=== PATIENT | male | born 1950 | race Caucasian/White ===

== ENCOUNTER 2016-12-14 17:23 | Inpatient (IN) | payer MEDICARE, MEDICAID ==
[~2016-12-14] VITALS: Ht 188 cm; Wt 165.0 kg
[~2016-12-14 17:23] MED LIST: ADVAIR DISK1 INH; AMLODIPINE BESYL5 MG PO; ASPIRIN EC325 MG PO; ASPIRIN ENTERIC81 MG PO; ATIVAN1 MG PO; BACTRIM DS1 TAB PO; BACTROBAN2 % EX; BUSPAR15 M1 PO; CEFTIN500 MG PO; CEPHALEXIN500 MG PO; CIPROFLOXACN500 MG PO; COMBIVENT RESPIMAT IN; COUMADIN2.5 MG PO; COUMADIN4 MG PO; COUMADIN5 MG PO; DESMOPRESSIN0.2 MG PO; DEXILANT60 MG PO; DUONEB IN; FENOFIBRATE145 MG PO; FENOFIBRATE54 MG PO; FLUOXETINE20 MG PO; GABAPENTIN300 MG PO; GLIPIZIDE ER5 MG PO; HYDROXYZ HCL25 MG PO; HYDROXYZINE HCL25 M1 PO; KEPPRA500 M2 PO; LISINOPRIL20 MG PO; LOPRESSOR50 M1 PO; LORAZEPAM0.5 MG PO; LYRICA50 MG PO; MEDDOSEPAK PO; METFORMIN850 MG PO; METOPROL TAR25 MG PO; NABUMETONE500 MG PO; OXYCODONE HCL15 MG PO; PREDNISONE20 MG PO; SIMVASTATIN40 MG PO; SUMATRIPTAN25 MG PO; TYLENOL 500MG TAB PO; ZESTRIL30 MG PO; ZOHYDRO ER30 M1 PO
[2016-12-14 18:08] LABS: HEMATOCRIT 38.4 % (39.0-50.0); HEMOGLOBIN 11.3 g/dl (14.0-18.0); IMMATURE GRANULOCYTES 0.3 % (0.0-1.0); MEAN CORPUSCULAR HGB 23.5 pG CALC (26.0-32.0); MEAN CORPUSCULAR HGB CONC 29.4 g/L CALC (32.0-36.0); NEUT# 8.35 thou/uL (1.82-7.42); RED BLOOD COUNT 4.8 mill/uL (4.70-6.10); RED CELL DISTRI WIDTH 17.8 % (11.5-15.5)
[2016-12-14 18:20] LABS: ALBUMIN 4.1 g/dL (3.2-5.0); ALKALINE PHOSPHATASE 88 u/l (38-126); ANION GAP 17 (6-22 (CALC)); BILIRUBIN, TOTAL 0.8 mg/dL (0.0-1.4); BUN 30 mg/dL (8-23); BUN/CREATININE RATIO 10 (12-20 (CALC)); CALCIUM 9.3 mg/dL (8.4-10.2); CARBON DIOXIDE 30 mmol/l (22-30); CHLORIDE 98 mmol/l (95-108); CREATININE 2.9 mg/dL (0.7-1.3); GFR 22 ML/MIN (>=60 (CALC)); GFR FOR AFR.AMER. 27 ML/MIN (>=60 (CALC)); GLUCOSE 127 mg/dL (82-115); SGOT/AST 47 u/l (19-48); SGPT/ALT < 6 u/l (11-66); SODIUM 140 mmol/l (137-146); TOTAL PROTEIN 8.5 g/dL (6.3-8.2)
[2016-12-14 18:33] LABS: MYOGLOBIN 67 ng/mL (0 - 121)
[2016-12-14 18:52] LABS: INTERNATIONAL NORMALIZED RATIO 3.3 RATIO (0.7-1.3); PROTHROMBIN TIME 39.4 SECONDS (9.0-12.5)
[2016-12-14 20:59] LABS: URINE BILIRUBIN - DIPSTICK NEGATIVE (NEGATIVE); URINE BLOOD DIPSTICK TRACE-INTACT (NEGATIVE); URINE CLARITY CLOUDY; URINE COLOR AMBER; URINE GLUCOSE - DIPSTICK NEGATIVE (NEGATIVE); URINE KETONE NEGATIVE (NEGATIVE); URINE LEUK ESTERASE TRACE (NEGATIVE); URINE NITRITE - DIPSTICK NEGATIVE (Negative); URINE PROTEIN - DIPSTICK 100 mg/dL (NEG-TRACE); URINE SPECIFIC GRAVITY >=1.030; URINE UROBILINOGEN - DIPSTICK 0.2 E.U./dL (0.2)
[2016-12-14 21:01] LABS: COCAINE NEGATIVE (NEGATIVE); METHADONE NEGATIVE (NEGATIVE); TETRAHYDROCANNABIONOL NEGATIVE (NEGATIVE)
[2016-12-14 21:02] LABS: BARBITURATES NEGATIVE (NEGATIVE); OXCYCODONE POSITIVE (NEGATIVE); TRICYLIC ANTIDEPRESSANTS NEGATIVE (NEGATIVE)
[2016-12-14 21:05] LABS: URINE AMORPH SEDIMENT MANY hpf (NONE-FER)
[2016-12-14 22:47] VITALS: BP 111/69
[2016-12-15 04:32] VITALS: BP 104/55
[2016-12-15 05:49] LABS: HEMATOCRIT 37.9 % (39.0-50.0); HEMOGLOBIN 11.1 g/dl (14.0-18.0); IMMATURE GRANULOCYTES 0.4 % (0.0-1.0); MEAN CORPUSCULAR HGB 23.4 pG CALC (26.0-32.0); MEAN CORPUSCULAR HGB CONC 29.3 g/L CALC (32.0-36.0); NEUT# 8.03 thou/uL (1.82-7.42); RED BLOOD COUNT 4.74 mill/uL (4.70-6.10); RED CELL DISTRI WIDTH 17.7 % (11.5-15.5)
[2016-12-15 06:05] LABS: INTERNATIONAL NORMALIZED RATIO 3.1 RATIO (0.7-1.3); PROTHROMBIN TIME 36.9 SECONDS (9.0-12.5)
[2016-12-15 07:16] LABS: CREATININE 3.3 mg/dL (0.7-1.3); POTASSIUM 4.3 mmol/l (3.5-5.1)
[2016-12-15 08:05] VITALS: BP 106/63
[2016-12-15] MEDS ORDERED: POTASSIUM CHLO20 ME2 PO (11:43)
[2016-12-15] MEDS ORDERED: LASIX 40 MG TAB40 MG PO (11:46)
[2016-12-15] MEDS ORDERED: COUMADIN5 MG PO (11:47)
[2016-12-15] MEDS ORDERED: WARFARIN2.5 MG PO (14:42)
[2016-12-15 16:00] VITALS: BP 130/81
[2016-12-15] MEDS ORDERED: METFORMIN500 M2 PO (16:17)
[2016-12-15] MEDS ORDERED: OMEPRAZOLE10 MG PO (16:18)
[2016-12-15 19:25] VITALS: BP 140/83
[2016-12-16 04:15] VITALS: BP 139/79
[2016-12-16 07:59] VITALS: BP 116/88
[2016-12-16 09:05] LABS: INTERNATIONAL NORMALIZED RATIO 2.4 RATIO (0.7-1.3); PROTHROMBIN TIME 28.5 SECONDS (9.0-12.5)
[2016-12-16 10:57] VITALS: BP 142/86
[2016-12-16 12:49] LABS: CALCIUM 8.8 mg/dL (8.4-10.2); CREATININE 2.5 mg/dL (0.7-1.3)
[2016-12-16 13:00] LABS: HEMATOCRIT 37.1 % (39.0-50.0); HEMOGLOBIN 10.9 g/dl (14.0-18.0); IMMATURE GRANULOCYTES 0.3 % (0.0-1.0); MEAN CELL VOLUME 80.7 fL CALC (80.0-100.0); MEAN CORPUSCULAR HGB 23.7 pG CALC (26.0-32.0); MEAN CORPUSCULAR HGB CONC 29.4 g/L CALC (32.0-36.0); NEUT# 6.52 thou/uL (1.82-7.42); RED BLOOD COUNT 4.6 mill/uL (4.70-6.10); RED CELL DISTRI WIDTH 18.2 % (11.5-15.5)
[2016-12-16 15:28] VITALS: BP 136/83
[2016-12-16 19:10] VITALS: BP 158/83
[2016-12-16 23:58] VITALS: BP 167/89
[2016-12-17 03:20] VITALS: BP 157/82
[2016-12-17 05:38] LABS: HEMATOCRIT 33.5 % (39.0-50.0); HEMOGLOBIN 9.8 g/dl (14.0-18.0); IMMATURE GRANULOCYTES 0.5 % (0.0-1.0); MEAN CELL VOLUME 80.5 fL CALC (80.0-100.0); MEAN CORPUSCULAR HGB 23.6 pG CALC (26.0-32.0); MEAN CORPUSCULAR HGB CONC 29.3 g/L CALC (32.0-36.0); NEUT# 6.58 thou/uL (1.82-7.42); RED BLOOD COUNT 4.16 mill/uL (4.70-6.10); RED CELL DISTRI WIDTH 18.1 % (11.5-15.5)
[2016-12-17 05:51] LABS: INTERNATIONAL NORMALIZED RATIO 2.6 RATIO (0.7-1.3); PROTHROMBIN TIME 30.1 SECONDS (9.0-12.5)
[2016-12-17 06:11] LABS: CALCIUM 8.9 mg/dL (8.4-10.2); POTASSIUM 4.6 mmol/l (3.5-5.1)
[2016-12-17 08:12] VITALS: BP 170/72
[2016-12-17 11:02] VITALS: BP 145/85
[2016-12-17 15:24] VITALS: BP 149/79
[2016-12-17 19:08] VITALS: BP 150/95
[2016-12-17 23:18] VITALS: BP 153/65
[2016-12-18 04:11] VITALS: BP 156/73
[2016-12-18 04:56] LABS: HEMOGLOBIN 9.4 g/dl (14.0-18.0); IMMATURE GRANULOCYTES 0.3 % (0.0-1.0); MEAN CELL VOLUME 78.5 fL CALC (80.0-100.0); MEAN CORPUSCULAR HGB 23.8 pG CALC (26.0-32.0); MEAN CORPUSCULAR HGB CONC 30.3 g/L CALC (32.0-36.0); NEUT# 5.84 thou/uL (1.82-7.42); RED BLOOD COUNT 3.95 mill/uL (4.70-6.10)
[2016-12-18 05:17] LABS: CALCIUM 8.6 mg/dL (8.4-10.2); CREATININE 1.5 mg/dL (0.7-1.3); POTASSIUM 4.2 mmol/l (3.5-5.1)
[2016-12-18 07:35] VITALS: BP 142/79
[2016-12-18 09:30] LABS: INTERNATIONAL NORMALIZED RATIO 2.9 RATIO (0.7-1.3); PROTHROMBIN TIME 33.6 SECONDS (9.0-12.5)
[2016-12-18] MEDS ORDERED: AMLODIPINE BESYL5 MG PO (18:37)
[2016-12-18] MEDS ORDERED: ADLT ASA LOW81 MG PO (18:37)
[2016-12-18] MEDS ORDERED: OXYCODONE HCL15 MG PO (18:37)
[2016-12-18] MEDS ORDERED: GABAPENTIN300 M2 PO (18:38)
[2016-12-18] MEDS ORDERED: LASIX 20 MG20 MG/TAB PO (18:38)
[2016-12-18] MEDS ORDERED: GLUCOTROL EXTE2.5 M1 PO (18:39)
[2016-12-18] MEDS ORDERED: MUPIROCIN2 % EX (18:39)
[2016-12-18 19:45] VITALS: BP 162/82
[2016-12-19] VITALS: BP 163/81
[2016-12-19 04:15] VITALS: BP 149/56
[2016-12-19 05:54] LABS: HEMATOCRIT 32.5 % (39.0-50.0); HEMOGLOBIN 9.9 g/dl (14.0-18.0); IMMATURE GRANULOCYTES 0.4 % (0.0-1.0); MEAN CELL VOLUME 79.7 fL CALC (80.0-100.0); MEAN CORPUSCULAR HGB 24.3 pG CALC (26.0-32.0); MEAN CORPUSCULAR HGB CONC 30.5 g/L CALC (32.0-36.0); NEUT# 6.4 thou/uL (1.82-7.42); RED BLOOD COUNT 4.08 mill/uL (4.70-6.10); RED CELL DISTRI WIDTH 18.1 % (11.5-15.5)
[2016-12-19 06:15] LABS: INTERNATIONAL NORMALIZED RATIO 2.2 RATIO (0.7-1.3); PROTHROMBIN TIME 25.4 SECONDS (9.0-12.5)
[2016-12-19 06:22] LABS: ANION GAP 15 (6-22 (CALC)); BUN 16 mg/dL (8-23); BUN/CREATININE RATIO 11 (12-20 (CALC)); CALCIUM 9.2 mg/dL (8.4-10.2); CARBON DIOXIDE 27 mmol/l (22-30); CHLORIDE 102 mmol/l (95-108); CREATININE 1.4 mg/dL (0.7-1.3); GFR 51 ML/MIN (>=60 (CALC)); GFR FOR AFR.AMER. > 60 ML/MIN (>=60 (CALC)); GLUCOSE 104 mg/dL (82-115); POTASSIUM 4.1 mmol/l (3.5-5.1); SODIUM 140 mmol/l (137-146)
[2016-12-19 06:25] LABS: ALBUMIN 3.5 g/dL (3.2-5.0); BUN 16 mg/dL (8-23); CALCIUM 9.3 mg/dL (8.4-10.2); CARBON DIOXIDE 26 mmol/l (22-30); CHLORIDE 101 mmol/l (95-108); CREATININE 1.4 mg/dL (0.7-1.3); GFR 51 ML/MIN (>=60 (CALC)); GFR FOR AFR.AMER. > 60 ML/MIN (>=60 (CALC)); GLUCOSE 104 mg/dL (82-115); POTASSIUM 4.2 mmol/l (3.5-5.1); SODIUM 139 mmol/l (137-146)
[2016-12-19 07:24] VITALS: BP 155/71
[2016-12-19 07:32] VITALS: BP 155/71
== END 2016-12-19 10:30 | disposition home or self-care (01) | DRG 683 ==
LOC: ENPENDDIS → ED 17:23 → ED-I 21:44 → ED 21:47 → MS2 21:48
PROVIDERS: Emergency Medicine; Internal Medicine; Internal Medicine Nephrology; ADMIT Internal Medicine; ATTEND Internal Medicine
PROC: 0T9B70Z Drainage of Bladder with Drainage Device, Via Natural or Artificial Opening (ICD-10-PCS; principal; 2016-12-15)
DX: N17.9 Acute kidney failure, unspecified (principal); Z68.42 Body mass index [BMI] 45.0-49.9, adult; J96.12 Chronic respiratory failure with hypercapnia; E87.2 Acidosis; E11.22 Type 2 diabetes mellitus with diabetic chronic kidney disease; E11.40 Type 2 diabetes mellitus with diabetic neuropathy, unspecified; I12.9 Hypertensive chronic kidney disease with stage 1 through stage 4 chronic kidney disease, or unspecified chronic kidney disease; E86.9 Volume depletion, unspecified; Q85.00 Neurofibromatosis, unspecified; N18.9 Chronic kidney disease, unspecified; Z79.84 Long term (current) use of oral hypoglycemic drugs; E11.51 Type 2 diabetes mellitus with diabetic peripheral angiopathy without gangrene; E86.0 Dehydration; E66.01 Morbid (severe) obesity due to excess calories; T50.2X5A Adverse effect of carbonic-anhydrase inhibitors, benzothiadiazides and other diuretics, initial encounter; D64.9 Anemia, unspecified; G47.33 Obstructive sleep apnea (adult) (pediatric); G40.909 Epilepsy, unspecified, not intractable, without status epilepticus; F41.9 Anxiety disorder, unspecified; E78.5 Hyperlipidemia, unspecified; Z86.73 Personal history of transient ischemic attack (TIA), and cerebral infarction without residual deficits; Z86.718 Personal history of other venous thrombosis and embolism; Z79.01 Long term (current) use of anticoagulants; Z86.711 Personal history of pulmonary embolism; Z87.891 Personal history of nicotine dependence

== ENCOUNTER 2017-11-24 05:26 | Emergency (ER) | payer MEDICARE, MEDICAID ==
[~2017-11-24] VITALS: Ht 188 cm; Wt 181.8 kg
[~2017-11-24 05:26] MED LIST changes: +ADLT ASA LOW81 MG PO; +GABAPENTIN300 M2 PO; +GLUCOTROL EXTE2.5 M1 PO; +LASIX 20 MG20 MG/TAB PO; +LASIX 40 MG TAB40 MG PO; +METFORMIN500 M2 PO; +MUPIROCIN2 % EX; +OMEPRAZOLE10 MG PO; +POTASSIUM CHLO20 ME2 PO; +WARFARIN2.5 MG PO
[2017-11-24 06:34] LABS: HEMATOCRIT 38.3 % (39.0-50.0); HEMOGLOBIN 11.8 g/dl (14.0-18.0); IMMATURE GRANULOCYTES 0.8 % (0.0-1.0); MEAN CORPUSCULAR HGB 27.7 pG CALC (26.0-32.0); MEAN CORPUSCULAR HGB CONC 30.8 g/L CALC (32.0-36.0); NEUT# 9.07 thou/uL (1.82-7.42); RED BLOOD COUNT 4.26 mill/uL (4.70-6.10); RED CELL DISTRI WIDTH 14.3 % (11.5-15.5)
[2017-11-24 06:37] LABS: MEAN CELL VOLUME 89.9 fL CALC (80.0-100.0)
[2017-11-24 06:47] LABS: ALBUMIN 3.9 g/dL (3.2-5.0); ALKALINE PHOSPHATASE 111 u/l (38-126); ANION GAP 17 (6-22 (CALC)); BILIRUBIN, TOTAL 0.6 mg/dL (0.0-1.4); BUN 11 mg/dL (8-23); BUN/CREATININE RATIO 10 (12-20 (CALC)); CARBON DIOXIDE 31 mmol/l (22-30); CHLORIDE 100 mmol/l (95-108); CREATININE 1.2 mg/dL (0.7-1.3); GFR > 60 ML/MIN (>=60 (CALC)); GFR FOR AFR.AMER. > 60 ML/MIN (>=60 (CALC)); POTASSIUM 3.8 mmol/l (3.5-5.1); SGOT/AST 25 u/l (19-48); SGPT/ALT 19 u/l (11-66); SODIUM 144 mmol/l (137-146); TOTAL PROTEIN 7.6 g/dL (6.3-8.2)
[2017-11-24 06:58] LABS: MYOGLOBIN 150 ng/mL (0 - 121)
[2017-11-24] MEDS ORDERED: LEVETIRACETAM500 MG PO (07:13)
[2017-11-24] MEDS ORDERED: LISINOPRIL20 MG PO (07:16)
[2017-11-24] MEDS ORDERED: FUROSEMIDE40 MG PO (07:17)
[2017-11-24] MEDS ORDERED: DESMOPRESSIN A0.2 MG PO (07:20)
[2017-11-24] MEDS ORDERED: GABAPENTIN100 MG PO (07:32)
[2017-11-24] MEDS ORDERED: FENOFIBRATE145 MG PO (07:33)
[2017-11-24 07:48] LABS: INTERNATIONAL NORMALIZED RATIO 1.4 RATIO (0.7-1.3)
[2017-11-24 08:38] LABS: URINE BLOOD DIPSTICK NEGATIVE (NEGATIVE); URINE COLOR YELLOW; URINE GLUCOSE - DIPSTICK NEGATIVE (NEGATIVE); URINE KETONE TRACE mg/dL (NEGATIVE); URINE LEUK ESTERASE NEGATIVE (NEGATIVE); URINE NITRITE - DIPSTICK NEGATIVE (Negative); URINE PROTEIN - DIPSTICK 30 mg/dL (NEG-TRACE); URINE SPECIFIC GRAVITY >=1.030
[2017-11-24 08:42] LABS: URINE BILIRUBIN - DIPSTICK SMALL (NEGATIVE); URINE CLARITY SL CLOUDY
[2017-11-24 08:43] LABS: URINE EPITHELIAL CELLS FEW EPI/hpf (0-FEW); URINE MUCUS MODERATE hpf (NONE-FEW)
[2017-11-24 08:53] LABS: BARBITURATES NEGATIVE (NEGATIVE); COCAINE NEGATIVE (NEGATIVE); METHADONE NEGATIVE (NEGATIVE); OXCYCODONE NEGATIVE (NEGATIVE); TETRAHYDROCANNABIONOL NEGATIVE (NEGATIVE); TRICYLIC ANTIDEPRESSANTS NEGATIVE (NEGATIVE)
[2017-11-24 10:15] VITALS: BP 126/61
== END 2017-11-24 10:15 | disposition short-term general hospital (02) ==
LOC: ED 05:26
PROVIDERS: Emergency Medicine
PROC: 5A09357 Assistance with Respiratory Ventilation, Less than 24 Consecutive Hours, Continuous Positive Airway Pressure (ICD-10-PCS; principal; 2017-11-24)
DX: R41.82 Altered mental status, unspecified (principal); R06.89 Other abnormalities of breathing; J44.9 Chronic obstructive pulmonary disease, unspecified; E11.9 Type 2 diabetes mellitus without complications

== ENCOUNTER 2018-10-27 16:38 | Inpatient (IN) | payer MEDICARE, MEDICAID ==
[~2018-10-27] VITALS: Ht 188 cm; Wt 175.5 kg
[~2018-10-27 16:38] MED LIST changes: +DESMOPRESSIN A0.2 MG PO; +FUROSEMIDE40 MG PO; +GABAPENTIN100 MG PO; +LEVETIRACETAM500 MG PO
--- NOTE | 2018-10-27 16:38 | NUR ---
PT ALERT WITH TACHYPNEA, TWITCHING BODY MOVEMENTS, MOVES SELF ONTO STRETCHER FROM EMS STRETCHER
--- NOTE | 2018-10-27 17:00 | NUR ---
PATIENT STILL IN MILD RESPIRATORY DISTRESS MD AT BEDSIDE FOR EVAL PATIENT ANSWERING QUESTIONS APPROPRIATELY.
[2018-10-27 17:14] LABS: HEMATOCRIT 37.3 % (39.0-50.0); HEMOGLOBIN 11.4 g/dl (14.0-18.0); IMMATURE GRANULOCYTES 0.8 % (0.0-5.0); MEAN CELL VOLUME 90.3 fL CALC (80.0-100.0); MEAN CORPUSCULAR HGB 27.6 pG CALC (26.0-32.0); MEAN CORPUSCULAR HGB CONC 30.6 g/L CALC (32.0-36.0); NEUT# 8.22 thou/uL (1.82-7.42); RED BLOOD COUNT 4.13 mill/uL (4.70-6.10); RED CELL DISTRI WIDTH 16.2 % (11.5-15.5)
[2018-10-27 17:32] LABS: ALBUMIN 3.9 g/dL (3.2-5.0); ALKALINE PHOSPHATASE 91 u/l (38-126); ANION GAP 17 (6-22 (CALC)); BILIRUBIN, TOTAL 0.8 mg/dL (0.0-1.4); BUN 18 mg/dL (8-23); BUN/CREATININE RATIO 13 (12-20 (CALC)); CARBON DIOXIDE 32 mmol/l (22-30); CHLORIDE 95 mmol/l (95-108); CREATININE 1.4 mg/dL (0.7-1.3); GFR 51 ML/MIN (>=60 (CALC)); GFR FOR AFR.AMER. > 60 ML/MIN (>=60 (CALC)); SGOT/AST 22 u/l (19-48); SODIUM 139 mmol/l (137-146); TOTAL PROTEIN 7.4 g/dL (6.3-8.2)
[2018-10-27 17:37] LABS: POTASSIUM 4.6 mmol/l (3.5-5.1)
[2018-10-27 17:39] LABS: INTERNATIONAL NORMALIZED RATIO 1.6 RATIO (0.7-1.3); PROTHROMBIN TIME 16.2 SECONDS (9.0-12.5)
--- NOTE | 2018-10-27 18:00 | NUR ---
PT INTUBATED WITH 200 MG OF ROCURONIUM AND 20 MG ETOMIDATE AT 1732 1739 200MCQ FENTYNAL GIVEN DIPROVAN INTIATED CENTRAL LINE PLACED AT 1810
--- NOTE | 2018-10-27 18:30 | NUR ---
PT SEDATED ON STRETCHER, IVS PATENT, VENT WORKING APPRORIATE. + LUNGS, - EPIGAS
--- NOTE | 2018-10-27 19:30 | NUR ---
PT SEDATED, NO CHANGES IN VITALS OR VENT SETTINGS. IV PATENT
--- NOTE | 2018-10-27 20:16 | NUR ---
FAMILY AT BEDSIDE, EXPLAINED OF CONDITION
--- NOTE | 2018-10-27 21:00 | NUR ---
REPORT CALLED TO TONIA DOUGLASS- ACCEPTED PT
--- NOTE | 2018-10-27 21:43 | NUR ---
68 yr old VERY OBESE male admitted to icu8 per stretcher from er accompanied by 2 er staff & rt. transferred x5 assists to bariatric bed. bed weight obtained. vent cont assisted by pt. jig boring machine operator for metal shows sinus rhythm 1st degree avb ivcd occas pvcs. #18 lac diprivan infusing @ 50mcg/kg/min. lt subcl tlc in place. ivf changed to ns @ 100cchr. versed infusing @ 1mg/hr. history obtained per er record, & old chart. oriented to room. fall precautions initiated.
[2018-10-27 22:00] VITALS: BP 126/74
--- NOTE | 2018-10-27 22:00 | NUR ---
nathaniel chairez applied.
--- NOTE | 2018-10-27 22:01 | NUR ---
Admission Note Report Given to: TONIA DOUGLASS Transported by: Wheelchair X Stretcher Transported with: X Nurse Transporter X Patent IV X O2 X Glass Wool Blanket Machine Feeder TRANSPORTED TO ICU 8 WITHOUT INCIDENT
[2018-10-27 22:15] VITALS: BP 98/58
[2018-10-27 22:30] VITALS: BP 87/51
[2018-10-27 22:45] VITALS: BP 86/50
[2018-10-27 23:00] VITALS: BP 94/50
[2018-10-27 23:39] VITALS: BP 96/59
[2018-10-28] VITALS (22 sets, daily range): BP systolic 96–150; BP diastolic 56–89
--- NOTE | 2018-10-28 00:01 | NUR ---
vent cont unassisted by pt. surveillance system monitor shows sinus rhythm 1st degree avb ivcd occas pvcs. @ bedside.
--- NOTE | 2018-10-28 02:00 | NUR ---
eyes closed. no apparent distress. vent cont unassisted by pt. remains @ bedside.
--- NOTE | 2018-10-28 05:00 | NUR ---
blood drawn & sent to lab. xray here. pcxr obtained.
[2018-10-28 05:11] LABS: HEMATOCRIT 36.7 % (39.0-50.0); HEMOGLOBIN 11.5 g/dl (14.0-18.0); IMMATURE GRANULOCYTES 0.8 % (0.0-5.0); MEAN CELL VOLUME 88.2 fL CALC (80.0-100.0); MEAN CORPUSCULAR HGB 27.6 pG CALC (26.0-32.0); MEAN CORPUSCULAR HGB CONC 31.3 g/L CALC (32.0-36.0); NEUT# 11.95 thou/uL (1.82-7.42); RED BLOOD COUNT 4.16 mill/uL (4.70-6.10)
[2018-10-28 05:29] LABS: ANION GAP 16 (6-22 (CALC)); BUN 20 mg/dL (8-23); BUN/CREATININE RATIO 14 (12-20 (CALC)); CARBON DIOXIDE 28 mmol/l (22-30); CHLORIDE 98 mmol/l (95-108); CREATININE 1.4 mg/dL (0.7-1.3); GFR 51 ML/MIN (>=60 (CALC)); GFR FOR AFR.AMER. > 60 ML/MIN (>=60 (CALC)); POTASSIUM 4.5 mmol/l (3.5-5.1); SODIUM 137 mmol/l (137-146)
[2018-10-28 05:34] LABS: PROTHROMBIN TIME 21.5 SECONDS (9.0-12.5)
[2018-10-28 05:35] LABS: INTERNATIONAL NORMALIZED RATIO 2.1 RATIO (0.7-1.3)
--- NOTE | 2018-10-28 06:00 | NUR ---
vent cont unassisted by pt. uop has been low this shift. remains @ bedside.
--- NOTE | 2018-10-28 08:00 | NUR ---
PT SEEN ON VENT, SEDATED. LUNGS ARE CLEAR, 60% OXYGEN. PT PROVIDED BEDBATH BY MAILE. SATS REMAIN IN LOW TO MID 90s. AND GIRLFRIEND BOTH AT BEDSIDE. PT ON DIPRIVAN AND VERSED WITH ADEQUATE SEDATION.
--- NOTE | 2018-10-28 11:44 | NUR ---
PT SEEN BY DR JULES THIS AM, UNABLE TO TELL FAMILY HOW LONG PT WILL REMAIN ON VENT. DIPRIVAN UPPED TO 55 MCG/KG/MIN PER OCCASIONAL MOVEMENTS. PT TURNED Q2H. PT HAS CT ORDERED, BUT UNSURE IF HE WILL FIT PER 400 POUNDS.
--- NOTE | 2018-10-28 13:43 | NUR ---
PT OFF UNIT, GOING TO CAT SCAN WITH RN, BODY SHOP ESTIMATOR, & RT.
--- NOTE | 2018-10-28 15:19 | NUR ---
PT TO CT AND BACK WITH GREAT EFFORT FROM SEVERAL HELPERS. PT THEN REPOSITIONED IN BED, HEAD UP 45 DEGREES. MEDS PROVIDED VIA OG TUBE. GR OUTPUT MINIMAL CONSIDERING HE WAS GIVEN DIURETIC EARLIER.
--- NOTE | 2018-10-28 16:08 | NUR ---
PT REMAINS AT REST IN THE BED, REMAINS AT BEDSIDE. VSS. VENT SETTINGS BEFORE. VERSED AND PROPOFOL PROVIDE NEEDED SEDATION.
--- NOTE | 2018-10-28 18:48 | NUR ---
PT CONTINUES BEFORE, SEDATE AND STABLE, VISITORS REMAIN AT BEDSIDE.
--- NOTE | 2018-10-28 19:35 | NUR ---
BEDSIDE REPORT RECEIVED FROM EVONNE MINA. PT RESTING IN BED WITH HOB ELEVATED AT 30 DEGREES. ON VENTILATOR; ASSISTED RESPIRATIONS AT 22 PER MINUTE. VERSED INFUSING AT 10ML/HR; DIPRIVAN INFUSING AT 55 MCG/KG/MIN; NORMAL SALINE INFUSING AT 100ML/HR. OG TUBE TO LIS WITH GREEN OUTPUT. AT BEDSIDE. PT CONDITION APPEARS STABLE. PLAN OF CARE REVIEWED WITH ; ENCOURAGED TO VERBALIZE CONCERNS. STATES UNDERSTANDING. SAFETY MEASURES IN PLACE. CALL LIGHT WITHIN REACH.
--- NOTE | 2018-10-28 20:27 | NUR ---
RT AT BEDSIDE; PT SUCTIONED AND FIO2 DECREASED TO 50%.
--- NOTE | 2018-10-28 21:21 | NUR ---
HS MEDICATIONS GIVEN THROUGH OG TUBE; PT TOLERATED WELL. SUCTION DISCONNECTED AND HOB ELEVATED TO 50 DEGREES.
--- NOTE | 2018-10-28 22:22 | NUR ---
DIPRIVAN TITRATED DOWN TO 50 MCG/KG/HR. OG TUBE RECONNECTED TO SUCTION AND PT REPOSITIONED. HOB CURRENTLY AT 30 DEGREES.
[2018-10-29] VITALS (21 sets, daily range): BP systolic 102–148; BP diastolic 53–82
--- NOTE | 2018-10-29 | NUR ---
ZOSYN INFUSING AT THIS TIME WITHOUT DIFFICULTY; CENTRAL LINE DRESSING IS CDI. REMAINS AT BEDSIDE.
--- NOTE | 2018-10-29 00:15 | NUR ---
FIO2 DECREASED TO 40% BY RT.
--- NOTE | 2018-10-29 01:15 | NUR ---
VS STABLE. TEMPERATURE 96.3. PT RESPOSITIONED. IV FLUIDS DISCONTINUED. DRIPS CONTINUE WITH ADEQUATE SEDATION.
--- NOTE | 2018-10-29 04:45 | NUR ---
XRAY AT BEDSIDE FOR CXR.
--- NOTE | 2018-10-29 05:30 | NUR ---
RT AT BEDSIDE; INCREASED FIO2 TO 45%.
--- NOTE | 2018-10-29 05:53 | NUR ---
LABS DRAWN FROM RIGHT IJ; DIPRIVAN TITRATED UP TO 55 MCG. EMS SITE TO LAC DISCONTINUED.
[2018-10-29 06:05] LABS: HEMATOCRIT 34.7 % (39.0-50.0); IMMATURE GRANULOCYTES 0.7 % (0.0-5.0); MEAN CELL VOLUME 87.4 fL CALC (80.0-100.0); MEAN CORPUSCULAR HGB 27.7 pG CALC (26.0-32.0); MEAN CORPUSCULAR HGB CONC 31.7 g/L CALC (32.0-36.0); NEUT# 10.14 thou/uL (1.82-7.42); RED BLOOD COUNT 3.97 mill/uL (4.70-6.10); RED CELL DISTRI WIDTH 16.1 % (11.5-15.5)
[2018-10-29 06:29] LABS: ALKALINE PHOSPHATASE 74 u/l (38-126); AMYLASE < 30 u/l (30-110); ANION GAP 12 (6-22 (CALC)); BILIRUBIN, TOTAL 0.5 mg/dL (0.0-1.4); BUN 22 mg/dL (8-23); BUN/CREATININE RATIO 16 (12-20 (CALC)); CARBON DIOXIDE 30 mmol/l (22-30); CHLORIDE 98 mmol/l (95-108); CREATININE 1.4 mg/dL (0.7-1.3); GFR 51 ML/MIN (>=60 (CALC)); GFR FOR AFR.AMER. > 60 ML/MIN (>=60 (CALC)); LIPASE 38 u/l (23-300); MAGNESIUM 1.9 mg/dL (1.6-2.3); POTASSIUM 3.8 mmol/l (3.5-5.1); SGOT/AST 19 u/l (19-48); SODIUM 137 mmol/l (137-146); TOTAL PROTEIN 6.1 g/dL (6.3-8.2)
[2018-10-29 06:30] LABS: ALBUMIN 3.1 g/dL (3.2-5.0)
--- NOTE | 2018-10-29 06:39 | NUR ---
450ML OF TEA COLORED URINE EMPTIED FROM GR CATH. 325ML OF GREEN GASTRIC CONTENT EMPTIED FROM OG SUCTION DEVICE. ZOSYN INFUSING AT THIS TIME. REMAINS AT BEDSIDE. PT SEEMS MORE RELAXED AFTER DIPRIVAN TITRATION.
--- NOTE | 2018-10-29 08:00 | NUR ---
PT SEEN VENTED, AT REST, SEDATED, NO DISTRESS. SLEEPING IN RECLINER IN ROOM.
[2018-10-29 09:47] LABS: INTERNATIONAL NORMALIZED RATIO 3.6 RATIO (0.7-1.3); PROTHROMBIN TIME 36.8 SECONDS (9.0-12.5)
--- NOTE | 2018-10-29 12:00 | NUR ---
PT CONTINUES BEFORE, MEDS TITRATED FOR RESPONSE. PT DID STIR, REQUIRING UPPAGE IN RATE, NOW CALM.
[2018-10-29 12:32] LABS: URINE BACTERIA FEW hpf; URINE BILIRUBIN - DIPSTICK NEGATIVE (NEGATIVE); URINE BLOOD DIPSTICK LARGE (NEGATIVE); URINE CLARITY BLOODY; URINE COLOR BROWN; URINE EPITHELIAL CELLS FEW EPI/hpf (0-FEW); URINE GLUCOSE - DIPSTICK NEGATIVE (NEGATIVE); URINE KETONE NEGATIVE (NEGATIVE); URINE LEUK ESTERASE TRACE (Negative); URINE NITRITE - DIPSTICK NEGATIVE (Negative); URINE PROTEIN - DIPSTICK 30 mg/dL (NEG-TRACE); URINE RBC 50-100 RBC/hpf (0-5); URINE UROBILINOGEN - DIPSTICK 0.2 E.U./dL (0.2); URINE WBC 0-2 WBC/hpf (0-5)
--- NOTE | 2018-10-29 17:32 | NUR ---
CAME OUT OF ROOM AND TOLD ME TO ORDER THEM 2 DINNER TRAYS. [facility] STATES THEY ALREADY STARTED THE DINNER TRAYS FOR PTS AND WILL BRING UP TRAYS FOR $5 IF THEY HAVE ANY LEFTOVER. AWARE.
--- NOTE | 2018-10-29 17:56 | NUR ---
2 GUEST TRAYS GIVEN TO & GIRLFRIEND.
--- NOTE | 2018-10-29 19:00 | NUR ---
BEDSIDE REPORT RECEIVED FROM EVONNE MINA. PT RESTING WITH HOB ELEVATED AT 30 DEGREES. NO SIGNS OF DISTRESS. RESPIRATIONS ASSISTED ON VENTILATOR; SETTINGS ARE UNCHANGED WITH FI02 AT 45%. AT BEDSIDE. PLAN OF CARE REVIEWED WITH . SAFETY MEASURES IN PLACE. CALL LIGHT WITHIN REACH.
--- NOTE | 2018-10-29 19:52 | NUR ---
DIPRIVAN CHANGED AND IV TUBING REPLACED. PT REPOSITIONED. ET TUBE NOTED TO NOW BE 23 AT THE LIP. CENTRAL LINE DRESSING IS CLEAN AND DRY; COMING UP AT THE EDGES. OG TUBE TO LIS AND CONTINUES TO DRAIN GREEN GASTRIC CONTENT. GR DRAINING TEA COLORED URINE IN BEDSIDE DRAINAGE BAG.
--- NOTE | 2018-10-29 21:36 | NUR ---
PO MEDS GIVEN THROUGH OG TUBE; HOB ELEVATED TO 45 DEGREES AND SUCTION DISCONNECTED.
--- NOTE | 2018-10-29 22:08 | NUR ---
SUCTION RESUMED ON OG TUBE AND PT REPOSITIONED. RT AT BEDSIDE TO SUCTION AND READJUST ET TUBE; NOW 22 AT LIPLINE.
[2018-10-30] VITALS (21 sets, daily range): BP systolic 118–175; BP diastolic 62–94
--- NOTE | 2018-10-30 01:08 | NUR ---
PT RESTING WITHOUT DISTRESS; APPROPRIATELY SEDATED WITH DIPRIVAN AT 55MCG/KG/MIN AND VERSED AND 20ML/HR. REMAINS AT BESSIDE. SAFETY MEASURES IN PLACE.
--- NOTE | 2018-10-30 04:30 | NUR ---
COMPLETE BED BATH AND LINEN CHANGE. ORAL CARE DONE. LABS DRAWN FROM TRIPLE LUMEN LEFT IJ; ALL LUMENS FLUSH; ONLY ONE LUMEN RETURNS BLOOD. PT RESPOSITIONED. 750ML OF DARK TEA COLORED URINE EMPTIED FROM GR. ONLY 50ML OF GREEN GASTRIC CONTENT EMPTIED FROM OG SUCTION CONTAINER. PT HAS MODERATE ORAL SECRETIONS AND IS SUCTIONED PRN. VENT SETTING UNCHANGED. DRIP INFUSION RATES ARE ALSO UNCHANGED. NO ACUTE CHANGES IN CONDITION.
[2018-10-30 06:14] LABS: HEMATOCRIT 34.8 % (39.0-50.0); IMMATURE GRANULOCYTES 1.2 % (0.0-5.0); MEAN CELL VOLUME 88.1 fL CALC (80.0-100.0); MEAN CORPUSCULAR HGB 27.8 pG CALC (26.0-32.0); MEAN CORPUSCULAR HGB CONC 31.6 g/L CALC (32.0-36.0); PLATELET COUNT 330 thou/uL (130-400); RED BLOOD COUNT 3.95 mill/uL (4.70-6.10); RED CELL DISTRI WIDTH 16.3 % (11.5-15.5)
[2018-10-30 06:26] LABS: ALBUMIN 3.1 g/dL (3.2-5.0); ALKALINE PHOSPHATASE 73 u/l (38-126); ANION GAP 14 (6-22 (CALC)); BILIRUBIN, TOTAL 0.5 mg/dL (0.0-1.4); BUN 22 mg/dL (8-23); BUN/CREATININE RATIO 15 (12-20 (CALC)); CARBON DIOXIDE 29 mmol/l (22-30); CHLORIDE 99 mmol/l (95-108); CREATININE 1.4 mg/dL (0.7-1.3); GFR 51 ML/MIN (>=60 (CALC)); GFR FOR AFR.AMER. > 60 ML/MIN (>=60 (CALC)); MAGNESIUM 1.9 mg/dL (1.6-2.3); POTASSIUM 3.8 mmol/l (3.5-5.1); SGOT/AST 22 u/l (19-48); SODIUM 139 mmol/l (137-146)
[2018-10-30 06:44] LABS: MANUAL DIFFERENTIAL YES
--- NOTE | 2018-10-30 07:30 | NUR ---
ASSESSMENT IS COMPLETED: IV SITE IS FREE FROM REDNESS OR EDEMA. HR IS REG, PULSES ARE STRONG X4, ABD IS SOFT WITH ACTIVE BS. BREATH SOUNDS ARE CLEAR, BILATERALLY. GR DRAINING TEA DARK MARC URINE. FAMILY IN THE ROOM. CONTINUE TO OBSERVE AND MONITOR.
--- NOTE | 2018-10-30 08:15 | NUR ---
LAB DRAWN FOR TESTING ON THE PT/INR
[2018-10-30 08:36] LABS: INTERNATIONAL NORMALIZED RATIO 3.4 RATIO (0.7-1.3); PROTHROMBIN TIME 35.3 SECONDS (9.0-12.5)
--- NOTE | 2018-10-30 08:46 | NUR ---
FIO2 DECREASED FROM 45% TO 40%
--- NOTE | 2018-10-30 09:00 | NUR ---
MEDICATION GIVEN THROUGH NGT. PT TOLERATED WELL. FAMILY IN THE ROOM. IV SITE IS FREE FROM REDNESS OR EDEMA. CONTINUE TO OSBERVE AND MONITOR. URINE CONTINUES TO BE TEA COLORED.
--- NOTE | 2018-10-30 10:51 | NUR ---
FIO2 DECREASED TO 35%. RR DECREASED TO 18.
--- NOTE | 2018-10-30 10:52 | NUR ---
PT'S VENTILATOR RATES ARE BEING LOWERED. IV SITE IS FREE FROM REDNESS OR EDEMA.
--- NOTE | 2018-10-30 11:16 | NUR ---
ECHO BEING COMPLETED AT BEDSIDE. URINE WAS OBTAINED AND SENT.
--- NOTE | 2018-10-30 11:54 | NUR ---
PT IS RESTING IN BED WITH NO DISTRESS NOTED. IV SITE IS FREE FROM REDNESS OR EDEMA.
--- NOTE | 2018-10-30 13:08 | NUR ---
US COMPLETED OF THE KIDNEY AT BEDSIDE. FAMILY IN THE ROOM. IV SITE IS FREE FROM REDNESS OR EDEMA.
--- NOTE | 2018-10-30 14:56 | NUR ---
PT IS RESTING COMFORTABLY WITH FAMILY IN THE ROOM.
--- NOTE | 2018-10-30 16:53 | NUR ---
PT RESTING WITHOUT ANY DIFFICULTY, IV SITE IS FREE FROM REDNESS OR EDEMA.
--- NOTE | 2018-10-30 18:36 | NUR ---
PT IS RELAXING IN BED WITH NO DISTRESS NOTED. IV SITE IS FREE FROM REDNESS OR EDEMA.
--- NOTE | 2018-10-30 19:00 | NUR ---
BEDSIDE REPORT RECEIVED FROM NEL SOSA. PT RESTING IN BED SEMI FOWLERS WITH HOB AT 30 DEGREES. RESPIRATIONS ASSISTED; VENT SETTINGS TV 600, RR 18, FIO2 35, PEEP 5. VERSED AND DIPRIVAN INFUSING AND GIVING ADEQUATE SEDATION WITH RASS SCORE OF -3. AT BEDSIDE. SAFETY MEASURES IN PLACE. NEEDS ARE ANTICIPATED BY STAFF.
--- NOTE | 2018-10-30 20:06 | NUR ---
ASSESSMENT COMPLETED. LUNGS SOUND MILDLY COURSE MORE ON RIGHT THAN LEFT. BOWEL SOUNDS HYPOACTIVE; PT IS HAVING FLATUS, BUT NO BOWEL MOVEMENT. SCANT AMOUNTS OF GREEN GASTRIC CONTENT FROM OG TUBE; MODERATE ORAL SECRETIONS. GR CATHETER TO BSDB; URINE TEA COLORED IN ADEQUATE AMOUNTS. CENTRAL LINE DRESSING TO LEFT IJ IS CDI. REMAINS AT BEDSIDE.
--- NOTE | 2018-10-30 20:54 | NUR ---
OG TUBE PLACEMENT VERIFIED WITH 20CC AIR; MEDICATIONS ADMINSITERED THROUGH OG AT THIS TIME. SUCTION ON HOLD AND HOB ELEVATED TO 50 DEGREES. DIPRIVAN TUBING REPLACED. RT AT BEDSIDE.
--- NOTE | 2018-10-30 22:11 | NUR ---
SUCTION RECONNECTED AND PT REPOSITIONED; HOB DOWN TO 30 DEGREES. NO SIGNS OF DISTRESS AND EYES ARE CLOSED.
[2018-10-31] VITALS (24 sets, daily range): BP systolic 111–170; BP diastolic 57–95
--- NOTE | 2018-10-31 00:10 | NUR ---
CONTINUES SAME HEART RHYTHM 1ST DEGREE AVB WITH IVCD ON TELEMETRY. SETTING UNCHANGED ON VENTILATOR. RESPIRATORY RATE AT 18. SAFETY MEASURES IN PLACE.
--- NOTE | 2018-10-31 02:34 | NUR ---
PT REPOSITIONED. CIPRO INFUSING AT THIS TIME.
--- NOTE | 2018-10-31 04:02 | NUR ---
NO ACUTE CHANGES IN CONDITION THROUGHOUT THE NIGHT. PT REMAINS ADEQUATELY SEDATED. GOOD LUNG EXPANSION DURING ASSISTED RESPIRATIONS. REMAINS AT BEDSIDE.
[2018-10-31 05:17] LABS: HEMATOCRIT 33.8 % (39.0-50.0); HEMOGLOBIN 10.7 g/dl (14.0-18.0); IMMATURE GRANULOCYTES 1.4 % (0.0-5.0); MEAN CELL VOLUME 88.5 fL CALC (80.0-100.0); MEAN CORPUSCULAR HGB CONC 31.7 g/L CALC (32.0-36.0); NEUT# 5.89 thou/uL (1.82-7.42); RED BLOOD COUNT 3.82 mill/uL (4.70-6.10); RED CELL DISTRI WIDTH 16.3 % (11.5-15.5)
[2018-10-31 05:30] LABS: INTERNATIONAL NORMALIZED RATIO 2.9 RATIO (0.7-1.3); PROTHROMBIN TIME 30.5 SECONDS (9.0-12.5)
[2018-10-31 05:46] LABS: ALKALINE PHOSPHATASE 73 u/l (38-126); AMYLASE < 30 u/l (30-110); ANION GAP 14 (6-22 (CALC)); BILIRUBIN, TOTAL 0.5 mg/dL (0.0-1.4); BUN 17 mg/dL (8-23); BUN/CREATININE RATIO 14 (12-20 (CALC)); CARBON DIOXIDE 29 mmol/l (22-30); CHLORIDE 99 mmol/l (95-108); CREATININE 1.3 mg/dL (0.7-1.3); GFR 55 ML/MIN (>=60 (CALC)); GFR FOR AFR.AMER. > 60 ML/MIN (>=60 (CALC)); LIPASE 54 u/l (23-300); MAGNESIUM 1.7 mg/dL (1.6-2.3); POTASSIUM 3.5 mmol/l (3.5-5.1); SGOT/AST 32 u/l (19-48); SODIUM 139 mmol/l (137-146)
--- NOTE | 2018-10-31 06:44 | NUR ---
RT AT BEDSIDE; EKG ORDERED FOR RHYTHM CHANGE ON TELE TO AFIB.
--- NOTE | 2018-10-31 07:20 | NUR ---
PT RESTING IN BED SEDATED AND INTUBATED, 7.5ETT 23 CM AT LIP LINE SEE FLOWSHEET FOR VENT SETTINGS, LARGE AMOUNT CLEAR ORAL SECRETIONS NOTED SUCTIONED PRN, MOUTH CARE PROVIDED, LUNGS CORASE WITH NO SOB OR DISTRESS TOLERATING VENT, VS STABLE AFEBRILE, GR CATH INTACT DRAINING YELLOW/GREENTINGED URINE WITH SEDIMENT NOTED, LEFT IJ TLC INTACT WITH PROPOFOL PER PROTOCOL AND VERSED GTT AT 2MG/HR, PT OBESE WITH EDEMA NOTED TO BILAT LE SKIN TO LE DRY AND SCALY, OVERALL UNKEMPT SKIN APPEARANCE. SMALL ABRADED AREA NOTED LEFT INNER UPPER GLUTEAL CHEEK, NO OTHER BREAKDOWN NOTED, TELE READING A FIB RATE CONTROLLED, SIGNIFICANT OTHER REMAINS AT BEDSIDE, ASKS QUESTIONS REGARDING EXTUBATION, ALL QUESTIONS ANSWERED THEN WITHIN FEW MINUTES ASKS SAME QUESTIONS AGAIN, INDICATING POOR UNDERSTANDING OF ILLNESS, TREATMENT PLAN ETC, WILL CONTINUE TO REINFROCE EDUCATION TO FAMILY MEMBERS. COMFORT MEASURES PROVIDED, REINFORCED EDCUATION PROVIDED AND EASILY VISIBLE FROM NURSES STATION, WILL CONTINUE TO MONITOR.
--- NOTE | 2018-10-31 08:40 | NUR ---
PT REMAINS INTUBATED AN SEDATED, REMAINS AT BEDSIDE, CALL MARCIAL WITHIN REACH, WILL CONTINUE TO MONITOR.
--- NOTE | 2018-10-31 09:12 | NUR ---
PT NOTED TO BE BACK IN SR RATE WITH PVC'S, BP REMAINS STABLE, CALL MARCIAL WITHIN REACH
--- NOTE | 2018-10-31 09:15 | NUR ---
AM PO MEDICATIONS GIVEN THRU OG TUBE AND SUCTION OFF FOR 1 HR, PT TOLERATED WELL, VS REMAIN STABLE, GR INTACT WITH CATH SECURITY DEVICE IN PLACE ON RIGHT UPPER THIGH, GR CARE PROVIDED, URINE REMAINS GREENISH IN COLOR WITH SEDIMENT NOTED; WILL CONTINUE TO MONITOR.
--- NOTE | 2018-10-31 09:45 | NUR ---
REQUESTED TO IN WAITING ROOM ALLOWING STAFF TO BATH PT AND PERFORM LINEN CHANGE WIFES RESPONSE WAS "AGAIN THEY JUST BATHED HIM YESTERDAY" EDUCATED REGARDING THE IMPORTANCE OF GOOD HYGIENE WITH REGARDS TO OVERALL HEALTH AND WELL BEING, RESPONDS "WELL HE DOES'T TAKE A BATH AT HOME" EDUCATED PT THAT A SHOWER IS NOT AN OPTION FOR PT AT THIS TIME, SPOUSE QUIETLY STATING THAT "NO ONE ELSE HAS MADE ME LEAVE BEFORE" CALL MARCIAL WITHIN REACH.
--- NOTE | 2018-10-31 09:55 | NUR ---
INCREASED PEEP TO [address] JULES.
--- NOTE | 2018-10-31 10:55 | NUR ---
PT BATHED EARLIER WITH 2 MAX ASSIST, RAJI CARE PROVIDED, AND COMPLETE LINEN CHANGE DONE, PT SIGNIFICANT OTHER AT BEDSIDE, AND WAS ASKED TO WAIT IN THE WAITING ROOM DURING ADL CARE, COMPLIED BUT WAS MUMBLING ABOUT NO ONE ELSE MAKING HER LEAVE THE ROOM. PT TOLERATED W/O INCIDENT, IN TO SEE PATIENT AND SPOUSE, SPOUSE ASKS THE SAME QUESTIONS REPEATEDLY, EVEN AFTER EXPLAINING ANSWERS MULTIPLE TIMES. WILL CONTINUE TO MONITOR.
--- NOTE | 2018-10-31 11:57 | NUR ---
ORAL CARE PROVIDED, PT REPOSITIONED Q2H, SUCTIONING OF ETT TUBE PROVIDED BY THIS NURSE AND R.T. COMPLETED, COPIUS THICK CREAMY SECRETIONS NOTED, PT TOLERATED WELL, SPOUSE REMAINS AT BEDSIDE, WITH ANOTHER FEMALE VISITOR BOTH IN PT BATHROOM AT THIS TIME, WILL CONTINUE TO MONITOR.
--- NOTE | 2018-10-31 13:03 | NUR ---
PT RESTING REPOSITIONED FOR COMFORT ORAL CARE PROVIDED, VISITORS REMAIN AT BEDSIDE. CALL MARCIAL WITHIN REACH.
--- NOTE | 2018-10-31 14:13 | NUR ---
PT INCOTNINENT OF LARGE AMOUNT SOFT/LOOSE BROWN STOOL, RAJI CARE PROVIDED AND LINENS CHANGE ACCORDGINLY, REMAINS AT BEDSIDE, REPOSITIONED AND ORAL CARE PROVIDED, WILL CONTINUE TO MONITOR
--- NOTE | 2018-10-31 15:34 | NUR ---
pt resting, remains at bedside, comfrot measures provided, oral suctioning and mouth care provided, medicated via OG as ordered, clamped for absorption at this time, will continue to monitor.
--- NOTE | 2018-10-31 16:15 | NUR ---
PT RESTING, NO S/S OF DISTRESS, VENT SETTINGS CHANGED SEE FLOWSHEET FOR DETAILS, CALL MARCIAL WITHIN REACH.
--- NOTE | 2018-10-31 17:19 | NUR ---
PM MEAL DELIVERED TO AT BEDSIDE.
--- NOTE | 2018-10-31 19:10 | NUR ---
REPORT GIVEN BY MUSHTAQ DOUGLASS. PATIENT SEDATED AND INTUBATED. VENT SETTINGS TV:600, FI02:40%, RATE:18, PEEP:6, PRESSURE SUPPORT:0, 7.5 ETT TAPED AT 23CM AT THE LIP. OG TUBE ON LOW/INTERMIT SUCTION WITH GREEN DRAINAGE. LEFT IJ TLC INFUSING MEDICATION WITHOUT DIFFCULTY AND DRESSING INTACT. DIPRIVAN 55MCG/KG/MIN AND VERSED 2MG/HR. GR CATHETER SECURED TO LEG DRAINING YELLOW/GREEN URINE.TELEMETRY MONTIOR SR 1ST DEGREE BLOCK WITH IVCD. PRESENT AT BEDSIDE RESTING WITH EYES CLOSED IN THE RECLINER. WILL DISCUSS PLAN OF CARE LATER WITH .
--- NOTE | 2018-10-31 19:35 | NUR ---
DIPRIVAN TUBING CHANGED AND NEW BOTTLE INFUSING AT 55MCG/KG/MIN WITHOUT DIFFCULTY.
--- NOTE | 2018-10-31 21:05 | NUR ---
AIR BOLUS PERFORMED TO COMFIRM CORRECT PLACMENT OF OG TUBE, BUBBLES HEARD IN STOMACH. HS MEDICATION GIVEN THROUGH OG TUBE. LOW/INTERMIT SUCITON TURNED OFF FOR 1 HR FOR DIGESTION OF PILLS. PATIENT TOLERATED WELL.
--- NOTE | 2018-10-31 22:07 | NUR ---
VERSED TUBING CHANGED AND MEDICATION INFUSING AT 2MG/HR.
[2018-11-01] VITALS (50 sets, daily range): BP systolic 120–209; BP diastolic 66–99
--- NOTE | 2018-11-01 00:03 | NUR ---
PATIENT SEDATED AND INTUBATED. RESP EVEN AND UNLABORED. NO S/S OF DISTRESS NOTED.
--- NOTE | 2018-11-01 01:50 | NUR ---
WAS INFORMED THAT THE PATIENT NEEDED TO BE CLEANED UP. PATIENT HAD A LARGE BM. DOESN'T UNDERSTAND WHY HE NEEDED A FULL BED BATH AGAIN SINCE ONE WAS PERFORMED DURING DAY SHIFT.
--- NOTE | 2018-11-01 02:00 | NUR ---
PATIENT GIVEN BATH AND FULL LINEN CHANGED. GR CARE PERFORMED. PATIENT TOLERATED WELL. PATIENT REPOSITIONED Q2H AND ORAL CARE PERFORMED Q2HR.
--- NOTE | 2018-11-01 04:20 | NUR ---
LABS DRAWN FROM LEFT IJ TLC. PATIENT TOLERATED WELL.
[2018-11-01 04:33] LABS: HEMATOCRIT 36.3 % (39.0-50.0); HEMOGLOBIN 11.5 g/dl (14.0-18.0); IMMATURE GRANULOCYTES 2.2 % (0.0-5.0); MEAN CELL VOLUME 87.9 fL CALC (80.0-100.0); MEAN CORPUSCULAR HGB 27.8 pG CALC (26.0-32.0); MEAN CORPUSCULAR HGB CONC 31.7 g/L CALC (32.0-36.0); NEUT# 7.87 thou/uL (1.82-7.42); RED BLOOD COUNT 4.13 mill/uL (4.70-6.10); RED CELL DISTRI WIDTH 16.6 % (11.5-15.5)
[2018-11-01 05:07] LABS: ALBUMIN 3.1 g/dL (3.2-5.0); ALKALINE PHOSPHATASE 77 u/l (38-126); ANION GAP 13 (6-22 (CALC)); BILIRUBIN, TOTAL 0.7 mg/dL (0.0-1.4); BUN 13 mg/dL (8-23); BUN/CREATININE RATIO 12 (12-20 (CALC)); CARBON DIOXIDE 31 mmol/l (22-30); CHLORIDE 99 mmol/l (95-108); CREATININE 1.1 mg/dL (0.7-1.3); GFR > 60 ML/MIN (>=60 (CALC)); GFR FOR AFR.AMER. > 60 ML/MIN (>=60 (CALC)); MAGNESIUM 1.7 mg/dL (1.6-2.3); POTASSIUM 3.5 mmol/l (3.5-5.1); SODIUM 139 mmol/l (137-146); TOTAL PROTEIN 6.2 g/dL (6.3-8.2)
--- NOTE | 2018-11-01 05:15 | NUR ---
X-RAY TECH IN ROOM FOR CHEST X-RAY. STATES THAT WE HAVE BEEN IN THE ROOM ALL NIGHT MESSING WITH HIM. APPEARS DISGRUNTLED ABOUT HAVING TO LEAVE THE ROOM FOR THE X-RAY TO BE TAKEN.
[2018-11-01 05:18] LABS: SGOT/AST 100 u/l (19-48)
--- NOTE | 2018-11-01 07:25 | NUR ---
PT RESTING IN BED SEDATED AND INTUBATED, 7.5 ETT 23 CM AT LIP LINE SEE FLOWSHEET FOR VENT SETTINGS, CONTINUES TO HAVE LARGE AMOUNT CLEAR ORAL SECRETIONS NOTED SUCTIONED PRN, MOUTH CARE PROVIDED, LUNGS CORASE WITH NO SOB OR DISTRESS TOLERATING VENT, VS STABLE SLIGHTLY FEBRILE THIS AM 99.2, GR CATH INTACT DRAINING YELLOW/GREEN TINGED URINE WITH SEDIMENT NOTED, LEFT IJ TLC INTACT WITH PROPOFOL PER PROTOCOL AND VERSED GTT REMAINS AT 2MG/HR, PT OBESE WITH EDEMA NOTED TO BILAT LE SKIN TO LE DRY AND SCALY, OVERALL UNKEMPT SKIN APPEARANCE. SMALL ABRADED AREA NOTED LEFT INNER UPPER GLUTEAL CHEEK, NO OTHER BREAKDOWN NOTED, TELE READING SR WITH PVC'S, SIGNIFICANT OTHER REMAINS AT BEDSIDE, REPEATEDLY ASKS QUESTIONS REGARDING EXTUBATION, ALL QUESTIONS ANSWERED THEN WITHIN FEW MINUTES SHE ASKS SAME QUESTIONS AGAIN, INDICATING POOR UNDERSTANDING OF ILLNESS, TREATMENT PLAN ETC, WILL CONTINUE TO REINFROCE EDUCATION TO FAMILY MEMBERS. COMFORT MEASURES PROVIDED, REINFORCED EDCUATION PROVIDED AND EASILY VISIBLE FROM NURSES STATION, WILL CONTINUE TO MONITOR.
--- NOTE | 2018-11-01 07:55 | NUR ---
PT INCONTINENT OF MODERATE AMOUNT LOOSE BROWN STOOL, RAJI CARE PROVIDED AND PT REPOSITIONED FOR COMFORT, REMAINS AT BEDSIDE, CALL MARCIAL WITHIN REACH.
--- NOTE | 2018-11-01 08:30 | NUR ---
PT REMAINS INTUBATED AND SEDATED NO CHANGE IN STATUS, REMAINS AT BEDSIDE, ORAL CARE AND REPOSITIONING COMPLETED, WILL CONTINUE TO MONITOR.
--- NOTE | 2018-11-01 10:24 | NUR ---
PT RESTING, AT BEDSIDE, R.T. AT BEDSIDE WELL. WILL ATTEMPT SEDATION VACTION AND MONITOR PT TOLERANCE.
--- NOTE | 2018-11-01 10:39 | NUR ---
VENT SETTING CHANGES MADE INCLUDING SIMV, WITH INCREASED PRESSURE SUPPORT SEE FLOWSHEET FOR DETAILS, WILL MONITOR TOLERANCE.
--- NOTE | 2018-11-01 11:13 | NUR ---
CONTINUE TO WEAN PROPOFOL, MOUTH CARE PROVIDED AND ORAL SUCTIONING OF SECRETIONS, PT TOLERATES WELL, WRIST RESTRAINTS APPLIED DURING WEANING TRIAL TO PREVENT SELF EXTUBATION
--- NOTE | 2018-11-01 11:17 | NUR ---
R.TTika AT BEDSIDE
[2018-11-01 11:22] LABS: PROTHROMBIN TIME 20.7 SECONDS (9.0-12.5)
--- NOTE | 2018-11-01 12:00 | NUR ---
ORALLY SUCTIONED [facility] PROVIDED AND POSITIONED FOR COMFORT, CALL MARCIAL WITHIN REACH, REMAINS AT BEDSIDE. SOME MINIMAL REPSONSE TO ORAL SUCTIONING NOT PRESENT EARLIER
--- NOTE | 2018-11-01 12:55 | NUR ---
CONTINUE TO WEAN PROPOFOL, PT TOLERATING, REMAINS AT BEDSIDE, WILL CONTINUE TO MONITOR
--- NOTE | 2018-11-01 13:58 | NUR ---
PT FOLLOWED SIMPLE COMMANDS, DIPROVAN OFF AT THIS TIME, WILL CONTINUE TO MONITOR CLOSELY
--- NOTE | 2018-11-01 14:51 | NUR ---
REMAINS AT BEDSIDE ORAL SUCTIONING PROVIDED AND ORAL CARE PROVIDED, RESTARINTS REMAIN IN PLACE, PT CONITNUES TO FOLLOW SIMPLE COMMANDS, WILL CONTINUE TO MONITOR.
--- NOTE | 2018-11-01 14:58 | NUR ---
AND Darren AT BEDSIDE
--- NOTE | 2018-11-01 15:07 | NUR ---
PT EXTUBATED AND OG REMOVED, COPIUS THICK SECRETIONS NOTED, BI PAP PLACED AT THIS TIME BY RTikaT. SEE FLOW SHEET AND RT NOTES FOR DETAILS. REMAINS AT BEDSIDE, WILL CONTINUE TO MONITOR.
--- NOTE | 2018-11-01 15:36 | NUR ---
PT TOLERATING BI PAP, SATS MAINTAINED, CALL MARCIAL WITHIN REACH, REMAINS AT BEDSIDE
--- NOTE | 2018-11-01 16:39 | NUR ---
WITH FREQUENT CUES AND ENCOURAGEMENT PT TOOK PO MEDICATIONS AND TOLERATED, BI PAPA BACK IN PLACE WITHOUT INCIDENT, WILL CONTINUE TO MONITOR.
--- NOTE | 2018-11-01 18:24 | NUR ---
CONTINUES TOLERATING BIPAP, REMAINS AT BEDSIDE, WILL CONTINUE TO MONITOR.
--- NOTE | 2018-11-01 19:14 | NUR ---
REPORT GIVEN BY MUSHAT[employer] DOUGLASS.PATIENT RESTING IN BED WITH AT THE BEDSIDE. RESP EVEN AND UNLABORED, WITH BIPAP IN PLACE. LUNG SOUNDS ARE CORASE. LEFT IJ TLC, DRESSING INTACT. GR CATHETER SECURED TO THE LEG DRAINING TEA COLORED URINE. PLAN OF CARE DISCUSSED WITH . PATIENT AND BOTH INFORMED TO CALL WITH ANY QUESTIONS OR CONCERNS. FALL PRECAUTIONS IN PLACE. ASSESSMENT COMPLETED AT THIS TIME.
--- NOTE | 2018-11-01 20:41 | NUR ---
HS MEDICATIONS GIVEN. PILLS TAKEN WHOLE WITH WATER. PATIENT TOLERATED WELL.
--- NOTE | 2018-11-01 22:00 | NUR ---
PATIENT RESTING WITH EYES CLOSED. BIPAP IN PLACE, GR SECURED TO LEG AND DRAINING URINE. AT BEDSIDE. RESP EVEN AND UNLABORED. NO S/S OF DISTRESS NOTED.
[2018-11-02] VITALS (23 sets, daily range): BP systolic 138–173; BP diastolic 73–92
--- NOTE | 2018-11-02 | NUR ---
PATIENT RESTING WITH EYES CLOSED. RESP EVEN AND UNLABORED ON BIPAP. RT AT THE BEDISDE. RESTING IN RECLINER. NO S/S OF DISTRESS NOTED. FALL PRECAUTIONS IN PLACE
--- NOTE | 2018-11-02 02:26 | NUR ---
PATIENT RESTING WITH EYES CLOSED. RESP EVEN AND UNLABORED WITH BIPAP. NO S/S OF DISTRESS NOTED.
--- NOTE | 2018-11-02 02:54 | NUR ---
GR EMPITED, OUTPUT RECORDED. URINE TEA COLORED.
--- NOTE | 2018-11-02 04:20 | NUR ---
BLOOD DRAWN FROM LEFT IJ TLC FOR LAB. ALL LUMENS FLUSH WELL. DRESSING INTACT. PATIENT TOLERATED WELL.
[2018-11-02 04:55] LABS: HEMATOCRIT 36.7 % (39.0-50.0); HEMOGLOBIN 11.6 g/dl (14.0-18.0); IMMATURE GRANULOCYTES 2.4 % (0.0-5.0); MEAN CELL VOLUME 88.2 fL CALC (80.0-100.0); MEAN CORPUSCULAR HGB 27.9 pG CALC (26.0-32.0); MEAN CORPUSCULAR HGB CONC 31.6 g/L CALC (32.0-36.0); NEUT# 9.08 thou/uL (1.82-7.42); RED BLOOD COUNT 4.16 mill/uL (4.70-6.10); RED CELL DISTRI WIDTH 16.4 % (11.5-15.5)
[2018-11-02 05:14] LABS: INTERNATIONAL NORMALIZED RATIO 1.6 RATIO (0.7-1.3); PROTHROMBIN TIME 16.4 SECONDS (9.0-12.5)
[2018-11-02 05:22] LABS: ALBUMIN 3.2 g/dL (3.2-5.0); ALKALINE PHOSPHATASE 74 u/l (38-126); AMYLASE < 30 u/l (30-110); ANION GAP 13 (6-22 (CALC)); BILIRUBIN, TOTAL 0.7 mg/dL (0.0-1.4); BUN 12 mg/dL (8-23); BUN/CREATININE RATIO 11 (12-20 (CALC)); CARBON DIOXIDE 30 mmol/l (22-30); CHLORIDE 101 mmol/l (95-108); CREATININE 1.1 mg/dL (0.7-1.3); GFR > 60 ML/MIN (>=60 (CALC)); GFR FOR AFR.AMER. > 60 ML/MIN (>=60 (CALC)); LIPASE 32 u/l (23-300); MAGNESIUM 1.9 mg/dL (1.6-2.3); POTASSIUM 3.6 mmol/l (3.5-5.1); SGOT/AST 77 u/l (19-48); SODIUM 141 mmol/l (137-146); TOTAL PROTEIN 6.1 g/dL (6.3-8.2)
--- NOTE | 2018-11-02 07:30 | NUR ---
PT RESTING IN BED NO SOB OR DISTRESS NOTED CONTINUES TOLERATING BI PAP,VS STABLE, GR CATH INTACT DRAINING DARK SLIGHTLY GREEN TINGED URINE WITH SEDIMENT NOTED, CATH SECURITY DEVICE IN PLACE ON R UPPER THIGH, LEFT IJ TLC INTACT ALL LUMENS SALINE LOCKED, PT OBESE WITH EDEMA NOTED TO BILAT LE SKIN TO LE DRY AND SCALY, OVERALL UNKEMPT SKIN APPEARANCE. SMALL ABRADED AREA NOTED LEFT INNER UPPER GLUTEAL CHEEK, NO OTHER BREAKDOWN NOTED, TELE READING SR WITH PVC'S, SIGNIFICANT OTHER REMAINS AT BEDSIDE, COMFORT MEASURES PROVIDED, REINFORCED EDCUATION PROVIDED AND EASILY VISIBLE FROM NURSES STATION, WILL CONTINUE TO MONITOR.
--- NOTE | 2018-11-02 08:00 | NUR ---
PLACED ON NC AT 5L HUMIDIFIED (PER THATS WHAT HE WEARS AT HOME), PT SPEECH VERY GARBLED AND DIFFICULT TO UNDERSTAND, PT CONFUSED ABOUT TIME LOCATION AND SURROUNDINGS, REORIENTED PRN, WILLMONITOR TOLERANCE OF NC, REMAINS AT BEDSIDE, WILL CONTINUE TO MONITOR.
--- NOTE | 2018-11-02 08:15 | NUR ---
DRESSING TO LEFT IJ TLC CHANGED USING STERILE TECHNIQUE, PT TOLERATED WELL, REMAINS AT BEDSIDE, WILL CONTINUE TO MONITOR.
--- NOTE | 2018-11-02 09:30 | NUR ---
PT RESTING IN BED, REMAINS AT BEDSIDE, VS STABLE CONTINUES TO TOLERATE NC, WILL CONTINUE TO MONITOR.
--- NOTE | 2018-11-02 11:15 | NUR ---
PT RESTING ACCU CHECK WNL, NO COVERGAE REQUIRED, REMAINS AT BEDSIDE, IN TO SEE PT PLAN OF CARE DISCUSSED, CALL MARCIAL WITHIN REACH.
--- NOTE | 2018-11-02 12:27 | NUR ---
COMPLETE BED BATH PERFORMED AND PT MADE MINIMAL TO NO EFFORT TO ASSIST WITH MOVEMENT AND LAUGHS WHEN STAFF CALLS HIM ON IT, PT REMINDED THAT IN ORDER TO GO HOME AND NOT TO REHAB HE HAS TO BE ABLE TO SIT UP IN BED AND PERFORM MINIMAL ADL CARE, AT BEDSIDE AND REINFORCES WHAT STAFF SAYS, COMPLETE LINEN CHANGE PERFORMED WELL, PT REPEATED COUGHS AND DOES NOT COVER MOUTH REGARDLESS OF STAFF INCESSANT REMINDERS TO DO SO, AWAITIGN BACK UP STAFF FOR REPOSITION RELATED TO PT SIZE AND WEIGHT, REMAINS AT BEDSIDE.
--- NOTE | 2018-11-02 12:40 | NUR ---
PT FED APPLESAUCE WITH GOOD INTAKE AND TOLERANCE NO S/S OF ASPIRATION OR ISSUE, WILL CONTINUE TO MONITOR.
--- NOTE | 2018-11-02 14:23 | NUR ---
pt resting inbed, watching television, offers no new complaints, remains at bedside, tolerating PO fluids well, call portillo within reach, will continue to monitor.
--- NOTE | 2018-11-02 14:48 | NUR ---
pt takes po medicatiosn well, remaisn at bedside and encourages active independent ROM with extremeties and pt cooperative with movement as tolerated. Will continue to encourage.
--- NOTE | 2018-11-02 15:27 | NUR ---
pt resting in bed dozes intermittenly, remains at bedside, noted to perform active ROM with extremeties intermittenly, will continue to monitor.
--- NOTE | 2018-11-02 16:14 | NUR ---
pt repositioned in bed for comfort, remains at bedside, call portillo within reach, denies pain or discomfort, will continue to monitor.
--- NOTE | 2018-11-02 16:55 | NUR ---
ACCU CHECK WITHIN NORMAL LIMITS, NO COVERAGE GIVEN ORDERED, CALL MARCIAL WITHIN REACH.
--- NOTE | 2018-11-02 18:25 | NUR ---
PT TOLERATED MEAL WELL, OFFERS NO NEW COMPLAINTS, CONTINUES TO INTERMITTENLY PERFORM ROM EXERCISES, CALL MARCIAL WITHIN REACH
--- NOTE | 2018-11-02 19:04 | NUR ---
BEDSIDE REPORT RECEIVED FROM EVONNE LANDIN. PT RESTING IN BED HIGH FOWLERS; ALERT AND ORIENTED TO PERSON AND PLACE. DENIES PAIN. RESPIRATIONS EVEN WITH EXERTIONAL SOB AND PT IS EASILY EXERTED; OXYGEN ON VIA NC AT 5L. SPEECH IS GARBLED. NON PRODUCTIVE COUGH. PLAN OF CARE REVIEWED WITH PT AND . ENCOURAGED TO VERBALIZE CONCERNS. STATES UNDERSTANDING. PT REQUESTS SLEEPING MEDICATION; STATES THAT HE CANNOT SLEEP. SAFETY MEASURES IN PLACE. CALL LIGHT WITHIN REACH.
--- NOTE | 2018-11-02 19:37 | NUR ---
ORDER RECEIVED FOR ONE TIME DOSE OF SONATA PER PT REQUEST.
--- NOTE | 2018-11-02 20:03 | NUR ---
ASSESSMENT COMPLETE. LUNG SOUNDS ARE CLEAR AND DIMINISHED. LOOSE COUGH. CENTRAL LINE DRESSING CDI AND TRIPLE LUMEN CATHETERS ALL FLUSH WELL AND ARE SALINE LOCKED. GR DRAINING DARK TEA COLORED URINE WITH SEDIMENT INTO BEDSIDE DRAINAGE BAG IN ADEQUATE AMOUNTS; LEG STRAP IN PLACE. LEGS ELEVATED ON PILLOWS. PATIENTS EXTREMITIES IMMEDIATELY DRIFT DOWN TO BED; THEY DO HAVE MOVEMENT.
--- NOTE | 2018-11-02 20:21 | NUR ---
NURSE HEARD MARLY, "NO JOSE M, DON'T DO THAT!" PT FOUND WITH ONE LEG OUT OF THE BED. WHEN ASKED WHERE HE IS GOING PT REPLYS, "I'M GOING TO WALK. I NEED TO TALK TO MY SISTER. I DIDN'T STEAL THAT CAR." LEGS PUT BACK IN BED AND EDUCATED ON SAFETY AND STRENGTHENING. BED ALARM PLACED.
--- NOTE | 2018-11-02 21:15 | NUR ---
HS MEDICATIONS ADMINSITERED INCLUDING SONATA FOR SLEEP. INSULIN HELD FOR ACCU CHECK OF 127. PT TOOK MEDS WHOLE WITHOUT DIFFICULTY. REMAINS AT BEDSIDE.
--- NOTE | 2018-11-02 21:45 | NUR ---
BIPAP APPLIED BY RT.
--- NOTE | 2018-11-02 23:49 | NUR ---
PT RESTING IN BED SEMI FOWLERS WITH EYES CLOSED; AWAKENS TO VERBAL STIMULI. PT INITAILLY APPEARED CONFUSED UPON AWAKENING; REINTRODUCED MYSELF HIS NURSE. PT STATES, "I THOUGHT I WAS HOME ALREADY." EASILY REORIENTED AND REMINDED THAT WAS HERE AT BEDSIDE ASLEEP. AFEBRILE. BIPAP STILL ON; OXYGEN SATURATION 98%.
[2018-11-03] VITALS (20 sets, daily range): BP systolic 127–182; BP diastolic 73–93
--- NOTE | 2018-11-03 01:45 | NUR ---
PT REQUESTING THAT NURSE CALL THE DOCTOR AND ASK FOR DISCHARGE ORDERS AT THIS TIME. PT REMINDED OF THE TIME AND THAT THE DR WILL SEE HIM IN THE MORNING. ALSO REMINDED OF HIS CURRENT ACTIVITY LEVEL. BIPAP MASK ADJUSTED FOR COMFORT.
--- NOTE | 2018-11-03 02:00 | NUR ---
REQUESTING A DRINK OF WATER; BIPAP REMOVED FOR NOW AND NASAL CANNULA APPLIED AT 5L.
--- NOTE | 2018-11-03 04:42 | NUR ---
BIPAP HAS REMAINED OFF AND PT MAINTAINING GOOD OXYGEN SATURATIONS; CURRENTLY 98% ON 5L VIA NC. PT WAKES UP FREQUENTLY AND CALLS FOR TO TALK TO HIM OR GIVE HIM SIPS OF WATER. CONTINUES TO DENY PAIN. LAUGHS AND JOKES AT TIMES. NO REQUESTS OR CONCERNS NOW.
--- NOTE | 2018-11-03 05:00 | NUR ---
PARTIAL BED BATH GIVEN AND GR CARE. PT HAD LEGS HANGING OVER SIDE OF BED. STATES HE DOESN'T KNOW WHERE HE WAS GOING TO GO. WAS ABLE TO MOVE LEGS BACK INTO BED INDEPENDENTLY.
[2018-11-03 05:10] LABS: HEMATOCRIT 37.7 % (39.0-50.0); HEMOGLOBIN 11.7 g/dl (14.0-18.0); IMMATURE GRANULOCYTES 2.1 % (0.0-5.0); MEAN CELL VOLUME 88.1 fL CALC (80.0-100.0); MEAN CORPUSCULAR HGB 27.3 pG CALC (26.0-32.0); NEUT# 10.54 thou/uL (1.82-7.42); RED BLOOD COUNT 4.28 mill/uL (4.70-6.10); RED CELL DISTRI WIDTH 16.1 % (11.5-15.5)
[2018-11-03 05:22] LABS: ALBUMIN 3.4 g/dL (3.2-5.0); ALKALINE PHOSPHATASE 77 u/l (38-126); ANION GAP 13 (6-22 (CALC)); BILIRUBIN, TOTAL 0.6 mg/dL (0.0-1.4); BUN 15 mg/dL (8-23); BUN/CREATININE RATIO 16 (12-20 (CALC)); CARBON DIOXIDE 30 mmol/l (22-30); CHLORIDE 100 mmol/l (95-108); GFR > 60 ML/MIN (>=60 (CALC)); GFR FOR AFR.AMER. > 60 ML/MIN (>=60 (CALC)); POTASSIUM 3.4 mmol/l (3.5-5.1); SGOT/AST 65 u/l (19-48); SODIUM 140 mmol/l (137-146); TOTAL PROTEIN 6.6 g/dL (6.3-8.2)
[2018-11-03 05:23] LABS: INTERNATIONAL NORMALIZED RATIO 1.5 RATIO (0.7-1.3); PROTHROMBIN TIME 15.2 SECONDS (9.0-12.5)
--- NOTE | 2018-11-03 05:46 | NUR ---
RT AT BEDSIDE FOR BREATHING TREATMENT.
--- NOTE | 2018-11-03 07:25 | NUR ---
PT RESTING IN BED NO SOB OR DISTRESS NOTED CONTINUES TOLERATING N/C AT 5L HUMIDIFIED (WHAT HE WEARS AT HOME PER SPOUSE),VS STABLE SLIGHT TEMP THIS AM 99.0, GR CATH INTACT DRAINING DARK SLIGHTLY GREEN TINGED URINE WITH SEDIMENT NOTED, CATH SECURITY DEVICE IN PLACE ON R UPPER THIGH, LEFT IJ TLC INTACT ALL LUMENS SALINE LOCKED, PT OBESE WITH EDEMA NOTED TO BILAT LE SKIN TO LE DRY AND SCALY, UNCHNAGED SMALL ABRADED AREA NOTED LEFT INNER UPPER GLUTEAL CHEEK, NO OTHER BREAKDOWN NOTED, TELE READING SR WITH PVC'S, SIGNIFICANT OTHER REMAINS AT BEDSIDE, COMFORT MEASURES PROVIDED, REINFORCED EDCUATION PROVIDED AND EASILY VISIBLE FROM NURSES STATION, WILL CONTINUE TO MONITOR.
--- NOTE | 2018-11-03 07:45 | NUR ---
SET UP ASSIST PROVIDED FOR AM MEAL, AT BEDSIDE TO FEED PT, PT HAVING DIFFICULTY RAISING BILATERAL ARMS EVEN WITH CONTINUED ACTIVE ATTEMPTED ROM SINCE YESTERDAY, BLE MOVEMENT MUCH BETTER THAN BUE. STATES HE HAS ARTHRITIS IN BOTHE SHOULDERS MAKING IT HARD ALL THE TIME BUT STATES ITS MUCH WORSE SINCE HE HAS BEEN SICK.
--- NOTE | 2018-11-03 08:19 | NUR ---
PT RESTING IN BED, ATE 100% OF AM MEAL AND TOLERATES WELL, CALL MARCIAL WITHIN REACH, WILL CONTINUE TO MONITOR.
--- NOTE | 2018-11-03 09:40 | NUR ---
PT RESTING IN BED, VISITORS AT BEDSIDE, PT MORE APPROPRIATE TODAY BUT STILL CONFUED ADBOUT DETAILS, WILL CONTINUE TO MONITOR.
--- NOTE | 2018-11-03 10:48 | NUR ---
AND ANOTHER VISITOR AT BEDSIDE SPEAKING LOUDLY, ACCU CHECK COMPLETED ADN NO COVERAGE REQUIRED, GR INTACT DRAINING DK URINE W/ SEDIMENT NOTED W/O INCIDENT, WILL CONTINUE TO MONITOR.
--- NOTE | 2018-11-03 11:31 | NUR ---
VISITOR AT BEDSIDE 2 GUEST TRAYS PROVIDED PER VISITOR REQUEST, CALL MARCIAL WITHIN REACH, PTS VISITOR ASSIT HIM WITH HIS MEAL (FEEDING HIM RELATED TO POOR UPPER EXTREM STREGTH AND LIMITED ROM)
--- NOTE | 2018-11-03 12:42 | NUR ---
PT TOLERATED MEAL WELL, OFFERS NO NEW COMPLAINTS, DR. JULES IN TO SEE PATIENT, PLAN OF CARE DISCUSSED AND REHAB MENTIONED RELATED TO PT WEAKNESS, PHYSICAL THERAPY TO BE CONSULTED, WILL CONTINUE TO MONITOR.
--- NOTE | 2018-11-03 13:19 | NUR ---
NEB TREATMENT TOLERATED W/O INCIDENT, VISITORS REMAIN AT BEDSIDE.
--- NOTE | 2018-11-03 14:39 | NUR ---
TAKES PO MEDICATIONS WELL, OFFERS NO NEW COMPLAINTS, CALL MARCIAL WITHIN REACH, REMAINS AT BEDSIDE
--- NOTE | 2018-11-03 15:26 | NUR ---
PT RESTING INBED, DOZES INTERMITTENLY, CONTINUES TO DO ACTIVE ROM WHEN PROMTED, REMAINS AT BEDSIDE, WILL CONTINUE TO MONITOR.
--- NOTE | 2018-11-03 16:35 | NUR ---
pt dozes intermittenly, offers no new complaints, remains at bedside, call portillo within reach, will continue to monitor
--- NOTE | 2018-11-03 17:36 | NUR ---
Set up assist provided for meal, at bedside and assist pt with eating, call portillo within reach, accu check completed and no coverage required, will continue to monitor
--- NOTE | 2018-11-03 18:19 | NUR ---
tolerated pm meal well with good intake, call portillo within reach, remains at bedside, will continue to monitor.
--- NOTE | 2018-11-03 19:00 | NUR ---
BEDSIDE REPORT RECEIVED FROM EVONNE LANDIN. PT RESTING IN BED SEMI FOWLERS; ALERT AND ORIENTED TO PERSON AND PLACE WITH CONFUSION AT TIMES AND GARBLED SPEECH. AT BEDSIDE. DENIES PAIN. RESPIRATIONS EVEN AND UNLABORED ON OXYGEN. PLAN OF CARE REVIEWED. PT ENCOURAGED TO VERBALIZE CONCERNS. STATES UNDERSTANDING. SAFETY MEASURES IN PLACE. CALL LIGHT WITHIN REACH.
--- NOTE | 2018-11-03 21:08 | NUR ---
HS MEDICATIONS GIVEN AT THIS TIME WITHOUT DIFFICULTY.
--- NOTE | 2018-11-03 23:39 | NUR ---
PT ASLEEP AT THIS TIME WITH NO SIGNS OF DISTRESS. RESPIRATIONS EVEN AND UNLABORED ON OXYGEN. SINUS RHYTHM WITH PAC'S, PVC'S AND IVCD'S ON TELEMETRY. TRIPLE LUMEN TO L IJ APPEAR HEALTHY AND DRESSING IS CDI. PT REPOSITIONED EVERY 2 HOURS; ABLE TO MOVE ARMS AND LEGS WITH EFFORT. WILL CONTINUE TO MONITOR.
[2018-11-04] VITALS (18 sets, daily range): BP systolic 146–164; BP diastolic 73–87
--- NOTE | 2018-11-04 02:04 | NUR ---
NO ACUTE CHANGES IN CONDITION THROUGHOUT THE NIGHT. GR DRAINING TEA COLORED URINE IN ADEQUATE AMOUNTS. VS STABLE. CALL LIGHT WITHIN REACH.
--- NOTE | 2018-11-04 02:26 | NUR ---
PT HAVING HALLUCINATIONS OF WHAT HE DESCRIBES "CRITTERS" AND "RODENTS" AROUND THE ROOM AND ON THE DOTSON. PT STATES, "SEE THERES A LITTLE BLACK ONE RUNNING BACK AND FORTH ACROSS THE TV." TV IS OFF AND NO MOVEMENTS NOTED BY NURSE. CIPRO INFUSING AT THIS TIME WITHOUT DIFFICULTY.
--- NOTE | 2018-11-04 04:13 | NUR ---
PT ASSISTED WITH REPOSITIONING; ACTIVITY LEVEL IS SLIGHTLY IMPROVING HE IS ABLE TO MOVE BODY AROUND SLIGHTLY WITH HELP. CONTINUES TO DENY PAIN. REMAINS ON 5L OF OXYGEN VIA NC. AT BEDSIDE.
[2018-11-04 05:23] LABS: HEMATOCRIT 35.6 % (39.0-50.0); HEMOGLOBIN 11.3 g/dl (14.0-18.0); IMMATURE GRANULOCYTES 1.4 % (0.0-5.0); MEAN CELL VOLUME 88.1 fL CALC (80.0-100.0); MEAN CORPUSCULAR HGB CONC 31.7 g/L CALC (32.0-36.0); NEUT# 10.42 thou/uL (1.82-7.42); RED BLOOD COUNT 4.04 mill/uL (4.70-6.10)
--- NOTE | 2018-11-04 05:30 | NUR ---
GOOD BLOOD RETURN FROM RED LUMEN; LAB WORK DRAWN AND FLUSHED PER PROTOCOL. 575ML OF LIGHT TEA COLORED URINE EMPTIED FROM GR; URINE COLOR HAS IMPROVED. PT REQUESTED THAT NURSE REMOVE HANDCUFFS; PT INFORMED THAT IS DOES NOT HAVE ANY HANDCUFFS ON OR RESTRAINTS AND HE CAN MOVE HIS ARMS FREELY. PT LIFTS ARMS WEAKLY AND STATES, "OH" AND LAUGHS. CONTINUES TO HAVE HALLUCINATIONS OF CRAWLING OBJECTS. REPORTS THAT HE EXPERIENCES THIS AT HOME AND IT IS NOT NEW.
[2018-11-04 05:44] LABS: INTERNATIONAL NORMALIZED RATIO 1.4 RATIO (0.7-1.3)
[2018-11-04 05:50] LABS: ALBUMIN 3.2 g/dL (3.2-5.0); ALKALINE PHOSPHATASE 67 u/l (38-126); ANION GAP 12 (6-22 (CALC)); BILIRUBIN, TOTAL 0.6 mg/dL (0.0-1.4); BUN 15 mg/dL (8-23); BUN/CREATININE RATIO 16 (12-20 (CALC)); CARBON DIOXIDE 30 mmol/l (22-30); CHLORIDE 98 mmol/l (95-108); CREATININE 0.9 mg/dL (0.7-1.3); GFR > 60 ML/MIN (>=60 (CALC)); GFR FOR AFR.AMER. > 60 ML/MIN (>=60 (CALC)); POTASSIUM 3.6 mmol/l (3.5-5.1); SGOT/AST 43 u/l (19-48); SODIUM 137 mmol/l (137-146); TOTAL PROTEIN 6.2 g/dL (6.3-8.2)
--- NOTE | 2018-11-04 06:39 | NUR ---
BED SCALE WEIGHT OBTAINED WITH LESS THAN 1 LB WEIGHT GAIN. SEE WEIGHT INTERVENTION.
--- NOTE | 2018-11-04 07:25 | NUR ---
PT RESTING IN BED NO SOB OR DISTRESS NOTED CONTINUES TOLERATING N/C AT 5L HUMIDIFIED VS STABLE SLIGHT TEMP THIS AM 99.7, GR CATH INTACT DRAINING DARK MARC/TEA COLORED URINE WITH SEDIMENT NOTED, CATH SECURITY DEVICE IN PLACE ON R UPPER THIGH, LEFT IJ TLC INTACT ALL LUMENS SALINE LOCKED, PT OBESE WITH EDEMA NOTED TO BILAT LE SKIN TO LE DRY AND SCALY, UNCHANGED SMALL ABRADED AREA NOTED LEFT INNER UPPER GLUTEAL CHEEK, SEROUS DRAINAGE NOTED TO BACK OF HEAD UNABLE TO DETERMINE SOURCE, NO OTHER BREAKDOWN NOTED, TELE READING SR WITH PVC'S, SIGNIFICANT OTHER REMAINS AT BEDSIDE, COMFORT MEASURES PROVIDED, REINFORCED EDCUATION PROVIDED AND EASILY VISIBLE FROM NURSES STATION, WILL CONTINUE TO MONITOR.
--- NOTE | 2018-11-04 08:30 | NUR ---
PT RESTING IN BED, SEEING THINGS ON THE DOTSON THAT AREN'T HERE ETC, AND FRIEND SAY THAT HE IS LIKE THAT AT HOME WELL. REORIENTED AND PT JUST LAUGHS AND SAYS OK...
--- NOTE | 2018-11-04 10:09 | NUR ---
PT RESTING IN BED, VISITORS REMAIN AT BEDSIDE, WILL CONTINUE TO MONTIOR.
--- NOTE | 2018-11-04 11:07 | NUR ---
IN TO SEE PATIENT AND SPOUSE, DISHCAGRE PLAN DISCUSSED INCLUDING SHORT TERM REHAB PLACEMENT, PT RECEPTIVE TO IDEA SPOUSE SEEMS APREHENSIVE. CASE MGMT CONSULTED, WILL CONTINUE TO MONITOR. ACCU CHECK COMPLETED NO COVERAGE REQUIRED.
--- NOTE | 2018-11-04 11:18 | NUR ---
PHYSICAL THERAPY AT BEDSIDE, FOR EVAL AND TREAT
--- NOTE | 2018-11-04 11:57 | NUR ---
FULL BED BATH GIVEN WITH PT ATTEMPTING ASSIST, PT TOLERATED WELL AND COMPLETE LINEN CHANGE PERFORMED, PT HAS REDNESS TO COCCYX ENCOURAGED TO REPEATEDLY REPOSITION, TURNED Q2H, FAMILY MEMBERS REMAIN AT BEDSIDE, AWARE OF SEROUS DRANG ON BACK OF SCALP AN UNKNOWN SOURCE, AREA CLEANSED WELL WITH SOAP AND WATER AND PATTED DRY, WILL CONTINUE TO MONITOR.
--- NOTE | 2018-11-04 12:01 | NUR ---
STRATEGY LEAD YOGI AT BEDSIDE TO DISCUSS GUEST TRAYS WITH VISITORS
--- NOTE | 2018-11-04 13:05 | NUR ---
VISITOR OF PT STATES PT IS ASKING FOR SOMTHING FOR PAIN, CALL INTO , AWAITING RETURN CALL
--- NOTE | 2018-11-04 14:54 | NUR ---
PT RESTING IN BED, DOZES INTERMITTENLY, REMAINS AT BEDSIDE, OFFERS NO NEW COMPLAINTS, PT IMPROVING WITH MOBILITY IN BED, REMINDED TO CHANGE POSITION FREQUENTLY, WILL CONTINUE TO MONITOR.
--- NOTE | 2018-11-04 16:59 | NUR ---
ACCU CHECK WITHIN NORMAL LIMITS NO COVERAGE REQUIRED, CALL MARCIAL WITHIN REACH, REMAINS AT BEDSIDE PT REMAINS COOPERATIVE AND APPROPRIATE WHEN ASKED QUESTIONS BUT DOES HAVE HALLUCINATIONS/SEES THINGS OR HEARS THINGS THAT AREN'T THERE, REORIENTED W/O INCIDENT AND FAMILY STATES ITS NOT NEW
--- NOTE | 2018-11-04 17:42 | NUR ---
PT RESTING IN BED, SET UP ASSIST PROVIDED FOR PM MEAL, CALL MARCIAL WITHIN REACH, WILL CONTINUE TO MONITOR.
--- NOTE | 2018-11-04 18:35 | NUR ---
GR DISCONTINUED CATHETER INTACT. ABLE TO VOID 250 DARK MARC URINE. IN THE URINAL AND SPRAYED SOME ON HIS SPOUSE WHO IS ASSISTING.
--- NOTE | 2018-11-04 19:20 | NUR ---
BEDSIDE REPORT RECEIVED FROM EVONNE LANDIN.
--- NOTE | 2018-11-04 19:53 | NUR ---
PT RESTING IN BED SEMI FOWLERS; ALERT AND ORIENTED TO PERSON AND PLACE. C/O PAIN TO LOWER EXTREMITIES; REPORTS THAT HE IS SORE FROM WORKING WITH PT. RESPIRATIONS EVEN AND UNLABORED ON OXYGEN. AFEBRILE. ASSESSMENT COMPLETED AT THIS TIME. URINAL NOW AT BEDSIDE. PLAN OF CARE REVIEWED WITH PT AND . ENCOURAGED TO VERBALIZE CONCERNS. STATES UNDERSTANDING. SAFETY MEASURES IN PLACE. CALL LIGHT WITHIN REACH.
--- NOTE | 2018-11-04 21:03 | NUR ---
TRAMADOL GIVEN WITH HS MEDS FOR EXTREMITY ACHES. SNACK PROVIDED FOR PT AND .
--- NOTE | 2018-11-04 22:13 | NUR ---
RT AT BEDSIDE FOR BREATHING TREATMENT.
[2018-11-05] VITALS (11 sets, daily range): BP systolic 126–176; BP diastolic 65–94
--- NOTE | 2018-11-05 02:51 | NUR ---
PT INCONTINENT OF LARGE AMOUNT OF URINE; HEARD PT YELLING OUT FOR NURSE AND STATES, "I MESSED THE BED." PT WAS ABLE TO TURN HIMSELF SIDE TO SIDE AND HOLD ONTO SIDE RAILS FOR HYGIENE AND LINEN CHANGE; EXTENSIVE ASSIST. RESPOSITIONED WITH PILLOWS ONTO RIGHT SIDE. SKIN TO BUTTOCK IS BLISTER LIKE AND FRAGILE, BUT INTACT; AQUACEL FOAM DRESSING APPLIED TO PROTECT SKIN AND REMINDED THAT HE NEEDS TO TURN AND REPOSITION EVERY 2 HOURS AND NURSE WILL BE IN TO ASSIST. CIPRO INFUSING AT THIS TIME.
--- NOTE | 2018-11-05 04:35 | NUR ---
LABS DRAWN FROM CENTRAL LINE WITHOUT DIFFICULTY; LEFT IJ DRESSING CDI.
--- NOTE | 2018-11-05 04:55 | NUR ---
DURING REPOSITIONING BOGGY AREA OF SKIN NOTED TO BE TORN. AQUACEL DRESSING LEFT INTACT. WILL CONSULT DAY SHIFT WOUND [id number].
--- NOTE | 2018-11-05 05:35 | NUR ---
BLADDER SCANNED PT DUE TO ONLY ONE INCONTINENT VOID THIS SHIFT. SCAN RESULTS 177 ML. WILL CONTINUE TO MONITOR URINARY OUTPUT. PO INTAKE ENCOURAGED.
[2018-11-05 05:38] LABS: INTERNATIONAL NORMALIZED RATIO 1.4 RATIO (0.7-1.3); PROTHROMBIN TIME 14.2 SECONDS (9.0-12.5)
--- NOTE | 2018-11-05 06:23 | NUR ---
PT RESTING IN BED SEMI FOWLERS; BUTT OFFLOADED. NO SIGNS OF DISTRESS. RESPIRATIONS EVEN AND UNLABORED ON 5L OXYGEN NC. SAFETY MEASURES IN PLACE. CALL LIGHT WITHIN REACH. AT BEDSIDE.
--- NOTE | 2018-11-05 07:25 | NUR ---
PT RESTING IN BED NO SOB OR DISTRESS NOTED CONTINUES TOLERATING N/C AT 5L HUMIDIFIED VS STABLE NO TEMP THIS AM 98.3, INCONTINENT OF LARGE AMOUNT CLEAR YELLOW URINE, PT APPEARS EMBARRASSED, FULL BATH AND LINEN CHANGE PERFORMED PT TOLERATED WELL AND WAS MUCH IMPROVED WITH INDEPENDENT MOBILITY PT ABLE TO ROLL FROM SIDE TO SIDE TO ASSIST NURSE, REMAINS AT BEDSIDE, LEFT IJ TLC INTACT ALL LUMENS SALINE LOCKED, PT OBESE WITH EDEMA NOTED TO BILAT LE SKIN TO LE DRY AND SCALY, PT HAS SHEARING AREAS ON COCCYX AREA WITH AQUACEL FOAM IN PLACE OVER IT, ENCOURAGED TO ROLL FROM SIDE TO SIDE AND CHANGE POSITIONS FREQUENTLY TO ALLEVIATE PRESSURE ON THIS AREA, PT AND SPOUSE VERBALIZE UNDERSTANDING, MINIMAL SEROUS DRAINAGE NOTED TO BACK OF HEAD SINCE YESTERDAY, STILL UNABLE TO DETERMINE SOURCE, NO OTHER BREAKDOWN NOTED, TELE READING SR WITH PVC'S, COMFORT MEASURES PROVIDED, REINFORCED EDCUATION PROVIDED AND EASILY VISIBLE FROM NURSES STATION, WILL CONTINUE TO MONITOR.
--- NOTE | 2018-11-05 08:10 | NUR ---
PT MOD ASSIST TO SIITNG UP ON EDGE OF BED WITH FEET ON FLOOR, PT TOLERATED WELL, TO ASSIST WITH MEAL INTAKE RELATED TO PT STILL HAVING DIFFICULTY WITH FINE MOTOR COORDINATION OF BUE, WILL CONTINUE TO MONITOR.
--- NOTE | 2018-11-05 09:15 | NUR ---
PT BACK TO BED, MIN ASSIST (MAINLY DIRECTION/INSTRUCTION) TO REPOSTION SELF IN BED, PT USES TRAPEZE BAR WELL WITHO INSTURCTION, REMAINS AT BEDSIDE, PT IMPROVED GREATLY SINCE YESTERDAY, WILL CONTINUE TO MONITOR.
--- NOTE | 2018-11-05 09:28 | NUR ---
JeanineT AT BEDSIDE FOR NEB TREATMENT, PT TOELRATED W/O INCIDENT,
--- NOTE | 2018-11-05 10:37 | NUR ---
at bedside, again discussing rehab after d/c, all questions answered, will continue to monitor.
--- NOTE | 2018-11-05 10:43 | NUR ---
CASE MGMT AT BEDSIDE SPEAKING WITH PT REGARDING REHAB [place]. PT DECLINES REHAB OUT OF TOWN.
--- NOTE | 2018-11-05 11:19 | NUR ---
ACCU CHECK WITHIN NORMAL LIMITS NO COVERAGE REQUIRED, WILL CONTINUE TO MONITOR.
--- NOTE | 2018-11-05 11:50 | NUR ---
PT SAT UP ON EDGE OF BED WITH MOD ASSIST TO EAT AFTERNOON MEAL, AND GIRLFRIEDND AT BEDSIDE
--- NOTE | 2018-11-05 13:11 | NUR ---
QUINN AND GIRLFRIEND ASSISTED PT BACK TO LAYING INBED, ENCOAURGED REPEATEDLY TO CHANGE POSITIONS TO RELIEVE PRESSURE OF BOTTOM.
--- NOTE | 2018-11-05 13:46 | NUR ---
MEDICATED FOR COMPLAINTS OF HIP PAIN AND BARIATRIC SOCKS APPLIED PER PT REQUEST, WILL CONTINUE TO MONITOR.
--- NOTE | 2018-11-05 14:12 | NUR ---
PHYSICAL THERAPY AT BEDSIDE WORKING WITH PATIENT.
--- NOTE | 2018-11-05 14:29 | NUR ---
R.T. AT BEDSIDE, PT SITTING UP ON EDGE OF BED AFTER PHYSICAL THERAPY, TOLERATING WELL, AND GIRLFRIEND REMAIN AT BEDSIDE
--- NOTE | 2018-11-05 14:48 | NUR ---
DRESSING TO LEFT IJ TLC CHANGED PER PROTOCOL USING STERILE TECHNIQUE, PT TOLERATED WELL, WILL CONTINUE TO MONITOR.
--- NOTE | 2018-11-05 15:07 | NUR ---
PT STATES PAIN MUCH IMPROVED SINCE MEDICATED, RESTING IN BED, WILL CONTINUE TO MONITOR.
--- NOTE | 2018-11-05 16:22 | NUR ---
PT WAS SEEN FOR FUNCTIONAL ACTIVITY. HE WAS RESTING SUPINE IN THE BED WITH 2 OTHER PEOPLE/RELATIVES IN THE ROOM. SPO2 WAS 96% WITH O2 VIA NC AT 5L. SOB WAS OBSERVED ALTHROUGHOUT THE ACTIVITIES. HE WAS ABLE TO PULL SELF UP TO SITTING ON EOB FROM SUPINE WITH THE USE OF OVERHEAD TRAPEZE. THIS WAS ACCOMPLISHED INDEPENDENTLY BUT WITH GREAT DIFFICULTY. HE THEN STOOD UP WITH VERBAL CUES ON HAND PLACEMENT. HE TOLERATED STATIC STANDING WITH RW AND SBA FOR ~2 MINS. BEFORE NEEDING TO SIT. HE WAS ALSO ABLE TO PERFORM STANDING MARCHING IN PLACE ~10 REPS WHILE HOLDING ONTO RW. PT RETURNED TO SUPINE INDEPENDENTLY, AGAIN WITH GREAT DIFFICULTY. SOB WAS NOTICEABLE ALTHROUGHOUT THE ACTIVITIES HOWEVER W/O SPO2 DESAT. LEFT PT WITH CALL MARCIAL BESIDE HIM, STILL WITH 2 RELATIVES IN THE ROOM WITH HIM. NO ADVERSE RXNS NOTED OR REPORTED AT THE END OF ACTIVITIES.
--- NOTE | 2018-11-05 17:34 | NUR ---
PT MOD ASSIST SITTING UP ON EDGE OF BED FOR PM MEAL, SET UP ASSIST PROVIDED SPOUSE AT BEDSIDE AND ASSISTS PT WITH FEEDING, CALL MARCIAL WITHIN REACH, WILL CONTINUE TO MONITOR.
--- NOTE | 2018-11-05 18:21 | NUR ---
TOLERATED PM MEAL WELL, REMAINS AT BEDSIDE, REMAINS SITTING UP ON EDGE OF BED, CALL MARCIAL WITHIN REACH
--- NOTE | 2018-11-05 18:39 | NUR ---
PT BACK INTO BED REPOSITIONED SELF FOR COMFORT, CALL MARCIAL WITHIN REACH, REMAINS AT BEDSIDE
--- NOTE | 2018-11-05 18:50 | NUR ---
BEDSIDE REPORT RECEIVED FROM EVONNE LANDIN. PT RESTING IN BED ON RIGHT SIDE; USING POSITIONING BAR TO RESPOITION SELF. ALERT AND OREINTED; AT BEDSIDE. PT C/O SOME LOWER BACK PAIN. RESPIRATIONS EVEN AND UNLABORED ON OXYGEN. SPEECH IS LESS GARBLED. PLAN OF CARE REVIEWED. PT ENCOURGAED TO VERBALIZE CONCERNS. SPOKE WITH THEM ABOUT THEIR REHAB OPTIONS AND DISCUSSED THEIR THOUGHTS ABOUT DISCHARGE PLANS. SAFETY MEASURES IN PLACE. CALL LIGHT WITHIN REACH.
--- NOTE | 2018-11-05 21:03 | NUR ---
TRAMADOL GIVEN WITH HS MEDS FOR LOWER BACK PAIN. ACCUCHECK 124 AND SNACK PROVIDED.
--- NOTE | 2018-11-05 22:07 | NUR ---
DRESSING CHANGED TO BUTT AND NEW AQUACEL FOAM DRESSING APPLIED. BARRIER CREAM APPLIED TO AREAS SURROUNDING DRESSING. PHOTO OBTAINED AND PLACED IN CHART. PT STATES THAT DISCOMFORT TO BUTTOCK HAS EASED AFTER DRESSING CHANGE. CURRENTLY ON RIGHT SIDE. PT COMPLIANT WITH TURNING AND REPOSITIONING.
[2018-11-06] VITALS (12 sets, daily range): BP systolic 100–152; BP diastolic 44–87
--- NOTE | 2018-11-06 00:50 | NUR ---
PT ASLEEP AT THIS TIME WITH NO SIGNS OF DISTRESS. RESPIRATIONS EVEN AND UNLABORED ON 5L O2 VIA NC. REMAINS AT BEDSIDE. CENTRAL LINE TO L NECK APPEARS HEALTHY AND DRESSING IS CDI. PT VOIDING MARC CLOUDY URINE IN URINAL AND HAS BEEN CONTINENT SO FAR THIS SHIFT. ABLE TO MAKE NEEDS KNOWN.
--- NOTE | 2018-11-06 03:35 | NUR ---
NO ACUTE CHANGES IN CONDITION. REMAINS AT BEDSIDE. SAFETY MEASURES IN PLACE. CALL LIGHT WITHIN REACH.
[2018-11-06 05:06] LABS: INTERNATIONAL NORMALIZED RATIO 1.6 RATIO (0.7-1.3); PROTHROMBIN TIME 16.7 SECONDS (9.0-12.5)
--- NOTE | 2018-11-06 05:10 | NUR ---
LABS DRAWN FROM TRIPLE LUMEN LEFT IJ; ALL LUMENS FLUSHED; ONLY ONE LUMEN WITH GOOD BLOOD RETURN. PT VOIDED 225 IN URINAL. NO EPISODES OF INCONTINENCE THIS SHIFT. DRESSING TO BUTTOCK IS CDI.
--- NOTE | 2018-11-06 06:34 | NUR ---
PT INCONTINENT OF URINE; PARITAL BED BATH GIVEN AND TOTAL LINEN CHANGE. ORAL CARE PROVIDED. BARRIER CREAM APPLIED TO BUTTOCK; DRESSING CDI. LOWER EXTREMITIES ELEVATED ON PILLOWS.
--- NOTE | 2018-11-06 07:25 | NUR ---
PT RESTING IN BED NO SOB OR DISTRESS NOTED CONTINUES TOLERATING N/C AT 5L HUMIDIFIED VS STABLE AFEBRILE THIS AM, PT REMAINS MUCH WAS MUCH IMPROVED WITH INDEPENDENT MOBILITY PT ABLE TO ROLL FROM SIDE TO SIDE TO ASSIST NURSE, REMAINS AT BEDSIDE, LEFT IJ TLC INTACT ALL LUMENS SALINE LOCKED, PT OBESE WITH EDEMA NOTED TO BILAT LE SKIN TO LE DRY AND SCALY, PT HAS UNCHANGED SHEARING AREAS ON COCCYX AREA WITH AQUACEL FOAM IN PLACE OVER IT, CONTINUALLY ENCOURAGED TO ROLL FROM SIDE TO SIDE AND CHANGE POSITIONS FREQUENTLY TO ALLEVIATE PRESSURE ON THIS AREA, PT AND SPOUSE VERBALIZE UNDERSTANDING, COMFORT MEASURES PROVIDED, SAFETY MEASURES REINFORCED PT EASILY VISIBLE FROM NURSES STATION, WILL CONTINUE TO MONITOR.
--- NOTE | 2018-11-06 07:40 | NUR ---
NEITHER PT NOR SPOUSE AWAKENS FOR AM MEAL, LEFT AT BEDSIDE FOR LETER CONSUMPTION IF WANTED.
--- NOTE | 2018-11-06 08:35 | NUR ---
PT AND SPOUSE AWAKE AT THIS TIME, OFFFERS NO NEW COMPLAINTS, CALL MARCIAL WITHIN REACH
--- NOTE | 2018-11-06 09:15 | NUR ---
DECLINED AM MEAL, TOOK AM MEDICATIONS WIITHOUT INCIDENT, CALL MARCIAL WITHIN REACH, WILL CONTINUE TO MONITOR.
--- NOTE | 2018-11-06 11:02 | NUR ---
ACCU CHECK WITHIN NORMAL LIMITS, NO COVERAGE REQUIRED CALL MARCIAL WITHIN REACH, REMAINS AT BEDSIDE
--- NOTE | 2018-11-06 11:12 | NUR ---
PT & SPOUSE AWARE OF PLANNED TRASNFER TO MED SURG ON TELE.
--- NOTE | 2018-11-06 11:58 | NUR ---
pt tolerated afternoon meal well and w/o incident, spouse assisted with feed related to poor fine motor coordination on bue, Call portillo within reach, will continue to monitor
--- NOTE | 2018-11-06 12:35 | NUR ---
pt sat up on edge of bed independently, complete bath provided with pt assisting as able, self saira care done, complete linen change provided, pt able to stand up and hold onto walker for linen change then took steps toward head of bed with no assist. Tolerated all well, back into bed adn used trapeze for mobility independently. much improved physical independance.
--- NOTE | 2018-11-06 14:15 | NUR ---
pt resting on side, family members at bedside, offers no new complaints, call portillo within reach, will continue to monitor
--- NOTE | 2018-11-06 15:12 | NUR ---
pt medicated for pain as requested, also given lactulose as ordered for no bm in 4 days, P.T. at bedside for therapy, will continue to monitor
--- NOTE | 2018-11-06 15:18 | NUR ---
pt ambulated to door of room with wlaker and P.T. tolerated activity well, sats maintained at 95-96% with mild exertional dyspnea, call portillo within reach
--- NOTE | 2018-11-06 17:17 | NUR ---
PT ACCU CHECK WITHIN NORMAL LIMITS NO COVERAGE REQUIREED, SPOUSE AND GIRLFRIEND REMAIN AT BEDSIDE, 2 GUEST TRAY REQUESTED FOR PM MEAL PER FMAILY REQUEST, COMFORT MEASURES PROVIDED, PT LAYING ON RIGHT SIDE TO RELIEVE PRESSURE, WILL CONTINUE TO MONITOR.
--- NOTE | 2018-11-06 17:50 | NUR ---
SET UP ASSIST PROVIDED FOR PM MEAL, 2 GUEST TRAYS PROVIDED WELL, SPOUSE AND GIRLFRIEND ASSIST PT WITH MEAL, CALL MARCIAL WITHIN REACH, WILL CONTINUE TO MONITOR.
--- NOTE | 2018-11-06 18:15 | NUR ---
PT ASSISTED TO BSC FOR LARGE SOFT BOWEL MOVEMENT AND BACK TO BED. DRESSING TO BUTT CDI.
--- NOTE | 2018-11-06 20:00 | NUR ---
BEDSIDE REPORT RECEIVED FROM EVONNE LANDIN. PT RESTING IN BED ON RIGHT SIDE; ALERT ORIENTED. DENIES PAIN. RESPIRATIONS EVEN AND UNLABORED ON OXYGEN. AT BEDSIDE. PLAN OF CARE REVIEWED. PT ENCOURAGED TO VERBALIZE CONCERNS. STATES UNDERSTANDING. SAFETY MEASURES IN PLACE. CALL LIGHT WITHIN REACH.
--- NOTE | 2018-11-06 21:00 | NUR ---
BLOOD SUGAR 121. SNACK PROVIDED. TRAMADOL GIVEN WITH HS MEDICATIONS FOR GENERLIZED ACHES. PT DECLINED LACTULOSE BECAUSE HE HAD LARGE BOWEL MOVEMENT EARLIER TODAY AND STATES THAT HE DOES NOT WANT TO HAVE TO GET UP IN THE MIDDLE OF THE NIGHT.
[2018-11-07] VITALS (12 sets, daily range): BP systolic 118–177; BP diastolic 47–82
--- NOTE | 2018-11-07 00:12 | NUR ---
PT RESTING IN BED ON RIGHT SIDE WITH EYES CLOSED; AWAKENS SPONTANEOUSLY. VS STABLE PT IS AFEBRILE. REPOSITIONING SELF IN BED. NO REQUESTS OR CONCERNS AT THIS TIME.
--- NOTE | 2018-11-07 01:11 | NUR ---
PT WAS INCONTINENT OF URINE BECAUSE HE COULD NOT GET TO THE URINAL QUICK ENOUGH AFTER ACCIDENTALLY KNOCKING IT TO THE GROUND. COMPLETE BED BATH GIVEN AND LINENS CHANGED. DRESSING TO COCCYX SOILED AND REMOVED. BARRIER CREAM APPLIED TO ENTIRE BUTTOCK. BLE ELEVATED ON PILLOWS. CALL LIGHT PLACED WITHIN REACH OF PT. REQUEST FOR SODA; DIET SODA PROVIDED.
--- NOTE | 2018-11-07 04:19 | NUR ---
LAB WORK DRAWN FROM CENTRAL LINE WITH SOME DIFFICULTY. FLUSHED PER PROTOCOL.
[2018-11-07 04:34] LABS: HEMATOCRIT 34.5 % (39.0-50.0); HEMOGLOBIN 10.6 g/dl (14.0-18.0); IMMATURE GRANULOCYTES 0.9 % (0.0-5.0); MEAN CELL VOLUME 90.1 fL CALC (80.0-100.0); MEAN CORPUSCULAR HGB 27.7 pG CALC (26.0-32.0); MEAN CORPUSCULAR HGB CONC 30.7 g/L CALC (32.0-36.0); NEUT# 8.55 thou/uL (1.82-7.42); RED BLOOD COUNT 3.83 mill/uL (4.70-6.10)
[2018-11-07 04:55] LABS: ALKALINE PHOSPHATASE 85 u/l (38-126); ANION GAP 11 (6-22 (CALC)); BILIRUBIN, TOTAL 0.6 mg/dL (0.0-1.4); BUN 17 mg/dL (8-23); BUN/CREATININE RATIO 20 (12-20 (CALC)); CARBON DIOXIDE 32 mmol/l (22-30); CHLORIDE 98 mmol/l (95-108); CREATININE 0.9 mg/dL (0.7-1.3); GFR > 60 ML/MIN (>=60 (CALC)); GFR FOR AFR.AMER. > 60 ML/MIN (>=60 (CALC)); MAGNESIUM 1.8 mg/dL (1.6-2.3); POTASSIUM 3.6 mmol/l (3.5-5.1); SGOT/AST 70 u/l (19-48); SODIUM 138 mmol/l (137-146); TOTAL PROTEIN 5.9 g/dL (6.3-8.2)
--- NOTE | 2018-11-07 06:13 | NUR ---
RT AT BEDSIDE FOR BREATHING TREATMENT.
--- NOTE | 2018-11-07 06:55 | NUR ---
11/06/18 The patinet is seen for funcitonal training. He has been working with nursing. Staff is doing an outstanding job getting him moving. He transferred to stand with CGA of 2. He was able to ambualte 10 feet to and from the bed limited by LE weakness and slight dyspnea. His vitals were stable throughout the Tx. We repostioned him sidelying as he has some long standing wounds to his buttocks. Family understandsd importance of guarding the patient and monitoring his vitals once he is DC home. He would do well going home with HH PT
--- NOTE | 2018-11-07 08:00 | NUR ---
PT AWAKE, ALERT THIS MORNING. AT BEDSIDE. PT STATES HIS NAME AND BIRTHDATE, BUT HAS DIFFICULTY WITH MONTH. LUNGS ARE CLEAR, 5 LPM HUMIDIFIED BY NC. NO DISTRESS, NO COMPLAINTS.
--- NOTE | 2018-11-07 09:53 | NUR ---
TX WAS ATTEMPTED THIS AM. HOWEVER, PT REFUSED STATING THAT HE HAD ONLY GOT BACK TO BED AND HAD BEEN SITTING ALL MORNING. HE ALSO STATED THAT HE WAS VERY DIZZY TO TOLERATE TX.
--- NOTE | 2018-11-07 12:00 | NUR ---
DR JULES HAS BEEN IN TO SEE PT THIS MORNING, PLAN IS TO DISCHARGE PT WITH HOME HEALTH. CASE MGMT AWARE. PT BELIEVES THAT HE CAN GO HOME SAFELY WITH ASSIST FROM HIS FAMILY.
--- NOTE | 2018-11-07 14:11 | NUR ---
ARI FROM DEANNA AT HOME @BEDSIDE WITH PT & FAMILY
--- NOTE | 2018-11-07 15:27 | NUR ---
PT REFUSED PHYSICAL THERAPY.
--- NOTE | 2018-11-07 15:55 | NUR ---
ATTEMPTED TX FOR THE 2ND TIME. PT WAS SEEN SLEEPING IN THE BED. GIVEN VERBAL AND TACTILE STIMULATION TO AROUSE HIM AND COOPERATE WITH TX. PT REMAINED SLEEPING. LEFT PT WITH IN THE ROOM.
--- NOTE | 2018-11-07 16:11 | NUR ---
CASE MGMT CONTINUES TO WORK WITH HOME HEALTH NURSE TOWARD DISPOSITION. PT RESTS IN THE BED.
--- NOTE | 2018-11-07 18:20 | NUR ---
PT HAD BROUGHT IN DESMOPRESSIN SINCE IT WAS NON-FORMULARY, BUT IT WAS NEVER ORDERED. THIS BOTTLE WAS RETURNED TONIGHT SO IT WOULD NOT BE FORGOTTEN TOMORROW WITH DISCHARGE.
--- NOTE | 2018-11-07 19:41 | NUR ---
PT RESTING IN BED ON R SIDE, WITH EYES CLOSED, S/O AT BEDSIDE IN RECLINER. PT EASILY AROUSED TO VERBAL STIMULI, INTRODUCED SELF TO PT, DISCUSSED POC, PT IN AGREEMENT. ALERT AND ORIENTED X3. EDEMA TO BLE, PT HAS WOUND TO BUTTOCK PICTURES IN CHART. ASSESSMENT COMPLETED, VSS, ACCUCHECK WNL. CALL LIGHT IN REACH,CONTINUE TO MONITOR.
--- NOTE | 2018-11-07 23:19 | NUR ---
PT RESTING IN BED, ASSISTED BY FOR URINAL. PT C/O PAIN 06/19, MEDICATED WITH ULTRAM. CALL LIGHT IN REACH,CONTINUE TO MONITOR.
[2018-11-08 00:07] VITALS: BP 118/62
[2018-11-08 02:00] VITALS: BP 127/60
--- NOTE | 2018-11-08 02:08 | NUR ---
PT RESTING IN BED WITH EYES CLOSED, NO SIGNS OF DISTRESS NOTED, RESP EVEN AND UNLABORED. CALL LIGHT IN REACH,CONTINUE TO MONITOR.
[2018-11-08 04:00] VITALS: BP 133/74
--- NOTE | 2018-11-08 05:29 | NUR ---
PT RESTING IN BED WITH EYES CLOSED, NO SIGNS OF DISTRESS NOTED, RESP EVEN AND UNLABORED. CALL LIGHT IN REACH,CONTINUE TO MONITOR.
[2018-11-08 06:02] VITALS: BP 138/78
[2018-11-08 06:13] LABS: INTERNATIONAL NORMALIZED RATIO 2.3 RATIO (0.7-1.3); PROTHROMBIN TIME 24.1 SECONDS (9.0-12.5)
--- NOTE | 2018-11-08 07:15 | NUR ---
pt resting with eyes closed; aroused easily to verbal stimuli; family member in the room; accu check 122; no complaints voiced; call portillo within reach; will continue to monitor.
[2018-11-08 08:53] VITALS: BP 121/70
--- NOTE | 2018-11-08 10:30 | NUR ---
DR. JULES IN TO SEE PT; PLAN OF CARE DISCUSSED;
--- NOTE | 2018-11-08 10:41 | NUR ---
LEFT TRIPLE LUMEN IJ REMOVED PER MD ORDER AND PROTOCOL; PRESSURE DRSG APPLIED; PT TOLERATED WITHOUT INCIDENT OR COMPLAINTS; FAMILY X2 AT BEDSIDE; CALL MARCIAL WITHIN REACH; WILL CONTINUE TO MONITOR.
[2018-11-08] MEDS ORDERED: CIPROFLOXACN250 MG PO (10:55)
--- NOTE | 2018-11-08 11:41 | NUR ---
Discharge instructions given. Patient verbalizes understanding of same. Discharged in stable condition via Wheelchair to Home with family. All belongings sent with pt.
== END 2018-11-08 11:30 | disposition home health service (06) | DRG 207 ==
LOC: ED 16:38 → ED-I 19:56 → ED 20:08 → ICU 20:09
PROVIDERS: Family Medicine; Internal Medicine Nephrology; ADMIT Internal Medicine; ATTEND Internal Medicine
PROC: 0BH17EZ Insertion of Endotracheal Airway into Trachea, Via Natural or Artificial Opening (ICD-10-PCS; principal; 2018-10-27)
PROC: 5A1955Z Respiratory Ventilation, Greater than 96 Consecutive Hours (ICD-10-PCS; 2018-10-27)
PROC: 05H433Z Insertion of Infusion Device into Left Innominate Vein, Percutaneous Approach (ICD-10-PCS; 2018-10-27)
PROC: 0T9B70Z Drainage of Bladder with Drainage Device, Via Natural or Artificial Opening (ICD-10-PCS; 2018-10-27)
PROC: 5A09357 Assistance with Respiratory Ventilation, Less than 24 Consecutive Hours, Continuous Positive Airway Pressure (ICD-10-PCS; 2018-10-27)
DX: J96.02 Acute respiratory failure with hypercapnia (principal); J18.9 Pneumonia, unspecified organism; I50.21 Acute systolic (congestive) heart failure; J44.1 Chronic obstructive pulmonary disease with (acute) exacerbation; J44.0 Chronic obstructive pulmonary disease with (acute) lower respiratory infection; Z68.42 Body mass index [BMI] 45.0-49.9, adult; N17.9 Acute kidney failure, unspecified; I13.0 Hypertensive heart and chronic kidney disease with heart failure and stage 1 through stage 4 chronic kidney disease, or unspecified chronic kidney disease; J96.01 Acute respiratory failure with hypoxia; E11.22 Type 2 diabetes mellitus with diabetic chronic kidney disease; N18.3 Chronic kidney disease, stage 3 (moderate); I48.0 Paroxysmal atrial fibrillation; Q85.00 Neurofibromatosis, unspecified; E66.01 Morbid (severe) obesity due to excess calories; F41.1 Generalized anxiety disorder; F32.9 Major depressive disorder, single episode, unspecified; G47.33 Obstructive sleep apnea (adult) (pediatric); E78.5 Hyperlipidemia, unspecified; Z79.01 Long term (current) use of anticoagulants; Z86.711 Personal history of pulmonary embolism; Z86.718 Personal history of other venous thrombosis and embolism; Z87.891 Personal history of nicotine dependence
CPT/HCPCS: S0164

== ENCOUNTER 2019-06-29 01:55 | Emergency (ER) | payer MEDICARE ==
[~2019-06-29] VITALS: Ht 188 cm; Wt 173.0 kg
[~2019-06-29 01:55] MED LIST changes: +CIPROFLOXACN250 MG PO
[2019-06-29] MEDS ORDERED: IBUPROFEN600 MG PO (03:16)
[2019-06-29 03:46] VITALS: BP 189/82
== END 2019-06-29 03:44 | disposition home or self-care (01) ==
LOC: ED 01:55
DX: S82.831A Other fracture of upper and lower end of right fibula, initial encounter for closed fracture (principal); J44.9 Chronic obstructive pulmonary disease, unspecified; E11.9 Type 2 diabetes mellitus without complications; E11.51 Type 2 diabetes mellitus with diabetic peripheral angiopathy without gangrene; I11.0 Hypertensive heart disease with heart failure; Q85.00 Neurofibromatosis, unspecified; E66.01 Morbid (severe) obesity due to excess calories; W18.30XA Fall on same level, unspecified, initial encounter; Y92.009 Unspecified place in unspecified non-institutional (private) residence as the place of occurrence of the external cause; Z86.718 Personal history of other venous thrombosis and embolism; Z86.711 Personal history of pulmonary embolism

== ENCOUNTER 2019-07-04 02:46 | Inpatient (IN) | payer MEDICARE, OTHER ==
[2019-07-04] VITALS (55 sets, daily range): BP systolic 72–147; BP diastolic 35–90
[~2019-07-04] VITALS: Ht 188 cm; Wt 168.0 kg
[~2019-07-04 02:46] MED LIST changes: +IBUPROFEN600 MG PO
--- NOTE | 2019-07-04 02:54 | NUR ---
BY ZHANNA FROM CAR TO ROOM
--- NOTE | 2019-07-04 03:24 | NUR ---
BREATHING TREATMENT IN PROGRESS
--- NOTE | 2019-07-04 03:28 | NUR ---
XRAY AT BEDSIDE.
[2019-07-04 03:29] LABS: HEMATOCRIT 30.1 % (39.0-50.0); IMMATURE GRANULOCYTES 1.5 % (0.0-5.0); MEAN CELL VOLUME 86.7 fL CALC (80.0-100.0); MEAN CORPUSCULAR HGB 25.9 pG CALC (26.0-32.0); MEAN CORPUSCULAR HGB CONC 29.9 g/L CALC (32.0-36.0); NEUT# 14.87 thou/uL (1.82-7.42); RED BLOOD COUNT 3.47 mill/uL (4.70-6.10); RED CELL DISTRI WIDTH 16.8 % (11.5-15.5)
--- NOTE | 2019-07-04 03:30 | NUR ---
BREATHING TREATMENT GIVEN BACK TO BACK. BREATHING TECH. FOR GOOD DEPOSITION TO THE LUNGS.
--- NOTE | 2019-07-04 03:42 | NUR ---
PORTABLE XRAYS COMPLETED WITH DIFFICULTY. PT KEEPS FALLING ASLEEP AND MOVING FOOT.
[2019-07-04 03:47] LABS: POTASSIUM 4.1 mmol/l (3.5-5.1)
[2019-07-04 03:48] LABS: ALBUMIN 4.2 g/dL (3.2-5.0); BILIRUBIN, TOTAL 0.9 mg/dL (0.0-1.4); CREATININE 2.5 mg/dL (0.7-1.3); TOTAL PROTEIN 8.1 g/dL (6.3-8.2)
[2019-07-04 03:50] LABS: ACT PARTIAL THROMBO TIME 59.7 SECONDS (20.0-32.5)
[2019-07-04 03:54] LABS: INTERNATIONAL NORMALIZED RATIO 4.8 RATIO (0.7-1.3); PROTHROMBIN TIME 46.4 SECONDS (9.0-12.5)
--- NOTE | 2019-07-04 04:06 | NUR ---
RADIOLOGY CALLED AND SAID PT WAS ABLE TO BE SCANED THEIR LIMIT IS 450 LBS
--- NOTE | 2019-07-04 04:25 | NUR ---
RETURNED FROM CT VIA STRETCHER WITH O2 AND 2 NURSES.
--- NOTE | 2019-07-04 04:30 | NUR ---
SISTER AND GF DO NOT HAVE A LIST OF MEDICATIONS AND ARE UNABLE TO VERIFY.
--- NOTE | 2019-07-04 04:30 | NUR ---
PT PLACED ON BIPAP. GIRLFRIEND AND SISTER AT BEDSIDE. STATES PT FELL 4 DAYS AGO AND BROKE HIS ANKLE...THAT DID NOT HAPPEN TONIGHT. STATES PT IS ON ANTIBIOTICS FOR KIDNEY INFECTION.
--- NOTE | 2019-07-04 05:04 | NUR ---
RT CALLED TO PLACE THE PATIENT ON BIPAP. SETTINGS: BIPAP 16/8, 40%, AND RATE OF 18. WE WILL CONTINUE TO MONITOR THE THE PATIENT.
--- NOTE | 2019-07-04 05:41 | NUR ---
REPORT TO ANISA.
--- NOTE | 2019-07-04 06:00 | NUR ---
TO FLOOR VIA STRETCHER ON O2 3 LPM NC. RT TRANSPORTING BIPAP SEPERATELY. PT PULLED OUT IV. NEW IV RESTARTED IN RIGHT HAND. ZOSYN HUNG PRIOR TO LEAVING ER. PT TOLERATED TRANSFER WELL.
--- NOTE | 2019-07-04 06:05 | NUR ---
PATIENT ARRIVED VIA ER STRETCHER ON 3L/MIN NC ACCOMPANIED BY NURSE MORENITA. BIPAP AT BEDSIDE. SOB WITH EXERTION, WAS TRANSFERRED OVER TO BED WITH ASSIST X4. WAS ABLE TO ANSWER ALMOST ALL QUESTIONS, HAS GARBLED SPEECH. TEMP 99.7. BS 189 MG/DL. SR ON TELEMETRY WITH IVCD. ADMITS TO PAIN "EVERYWHER BUT MAINLY R-HIP, R-KNEE, R-ANKLE." ALERT AND ORIENTED TO PERSON AND PLACE AND . HEAD TO TOE NURSING ASSESSMENT PERFORMED, SEE ADMIT CHARTING. NO MEDICATION RECONCILIATION COMPETED DUE TO PATIENT DOES NOT KNOW AND NO FAMILY AT BEDSIDE TO PROVIDE INFORMATION. URINAL PROVIDED. CALL LIGHT WITHIN REACH.
--- NOTE | 2019-07-04 06:43 | NUR ---
RECEIVED PT ON 4L NC. PT HAS DIFFICULTY BREATHING WHILE ASLEEP. PT PLACED ON BIPAP 18/6/40%. PT HAD ABG ALL RESULTS WITHIN NORMAL RANGE. PT PRESENTS AGITATED WITH TREMORS.
--- NOTE | 2019-07-04 07:20 | NUR ---
pt rolled over in bed to right side & urinated on floor
--- NOTE | 2019-07-04 07:47 | NUR ---
dr quintero contacted about pts agitation, constant moving around on bed, trying to get oob, pulling off monitoring equipment & dislodging iv. order faxed to pharmacy for 1mg ativan now.
--- NOTE | 2019-07-04 07:54 | NUR ---
#16 cath figueroa inserted using sterile procedure to better tract i&o and try to alleviate agitation. approx 400cc cloudy dark yellow/ferreira urine draining to bag.
--- NOTE | 2019-07-04 08:00 | NUR ---
rt @bedside for bipap eval
--- NOTE | 2019-07-04 08:20 | NUR ---
mariajose leavitt @bedside for assessment.
[2019-07-04 09:09] LABS: URINE BILIRUBIN - DIPSTICK NEGATIVE (NEGATIVE); URINE BLOOD DIPSTICK TRACE-LYSED (NEGATIVE); URINE COLOR YELLOW; URINE GLUCOSE - DIPSTICK NEGATIVE (NEGATIVE); URINE KETONE NEGATIVE (NEGATIVE); URINE LEUK ESTERASE TRACE (NEGATIVE); URINE NITRITE - DIPSTICK NEGATIVE (Negative); URINE PH 5.5 (4.5-8.0); URINE PROTEIN - DIPSTICK 100 mg/dL (NEG-TRACE); URINE SPECIFIC GRAVITY 1.025; URINE UROBILINOGEN - DIPSTICK 0.2 E.U./dL (0.2)
--- NOTE | 2019-07-04 09:15 | NUR ---
VENT SETTINGS: TV 650/0 FIO2 100% RR 16 PIP 30
[2019-07-04 09:21] LABS: URINE BACTERIA MANY hpf
[2019-07-04 09:23] LABS: URINE SQUAMOUS EPITHELIAL CELL FEW EPI/hpf (0-FEW); URINE TRANSITIONAL EPI. CELLS FEW hpf
[2019-07-04 09:24] LABS: URINE COARSE GRANULAR CAST FEW lpf
--- NOTE | 2019-07-04 09:30 | NUR ---
DR SELLERS @BEDSIDE, UNSUCCESSFUL WITH STARTING A CENTRAL LINE. WILL TRY AGAIN.
--- NOTE | 2019-07-04 10:00 | NUR ---
TRIED TO CONTACT TEODORO HARDING (NEXT OF KIN) AND J CARLOS SAM (EMERGENCY CONTACT) UNSUCCESSFULLY AT 08:17, 09:04, & 0958.
--- NOTE | 2019-07-04 11:00 | NUR ---
DR SELLERS @BEDSIDE, ESTABLISHED RIJ, TRIPLE LUMEN USING STERILE TECHNIQUE. +BLOOD RETURN x3.
--- NOTE | 2019-07-04 11:44 | NUR ---
GAVE REPORT TO [facility], THEY WILL CONNECT DR CURRIE TO [facility] DESIGN PAINTER.
--- NOTE | 2019-07-04 12:27 | NUR ---
PORTABLE XR COMPLETED TO VERIFY ETT, CENTRAL LINE, & NGT PLACEMENT.
--- NOTE | 2019-07-04 12:35 | NUR ---
0840 RAPID RESPONSE CALLED TO ICU1 FOR INCREASED AGITATION, INABILITY TO TOLERATE BIPAP, AND INEFFECTIVE BREATHING. DR CURRIE WANTS INTUBATION. 0842 DR CURRIE, MAXINE OSBORNE, BRIDGETT OSBORNE, [facility] ANESTHESIA, [facility] DEPT [employer] ANALYST, MELVIN DOUGLASS, LAB, TAHIR PACHECO, @BEDSIDE. 0852 ROCURONIUM 50MG GIVEN BY IV BY GERBER ANESTHESIA 0900 SIZE 7 ETT PLACED BY ANESTHESIA, 23 @LIP 0910 ADDITIONAL IV SITE ESTABLISHED, #22 RH BY MELVIN DOUGLASS 0915 PROPOFOL DRIP STARTED AT 10MCG/KG/MIN 0919 ROCURONIUM 50MG GIVEN BY IV BY GERBER ANESTHESIA 0920 RESTRAINTS INITIATED ON PT, PER PROTOCOL FOR INTUBATION 0953 VENT ALARMING, PT SNORING, UPON INSPECTION ETT NOT IN PLACE 0953 RAPID RESPONSE CALLED TO RE-INTUBATE PT 1000 SIZE 8 ETT PLACED BY ANESTHESIA, 23 @LIP 1015 OGT PLACED, TAPED TO ETT, CONNECTED TO SUCTION AT LIS 1030 SISTERALANNAH, CALLED AT [phone], TO INFORM OF EMERGENT INTUBATION, TRANSFER TO [facility], & GIVE PERMISSION TO GET BLOOD/BLOOD PRODUCTS.
--- NOTE | 2019-07-04 13:30 | NUR ---
VENT SETTINGS: TV 650/0 FIO2 50% RR 18 PIP 29
--- NOTE | 2019-07-04 13:39 | NUR ---
PROTOCOL ABG ON VENT. RESULTS 7.28/59.5/225/27/ 99.9% RATE INCREASED TO 18 FIO2 DECREASED TO 50%
--- NOTE | 2019-07-04 13:44 | NUR ---
LAB @BEDSIDE FOR TROP DRAW.
--- NOTE | 2019-07-04 14:57 | NUR ---
TRISTEN FROM [facility] CALLED TO ISSUE BED: 5A BED2. CAN CALL REPORT TO [phone] WILL ARRANGE TRANSPORTATION.
--- NOTE | 2019-07-04 15:06 | NUR ---
PER [facility], THEY WILL BE AT [facility] FOR TRANSPORT IN 20 MINS.
--- NOTE | 2019-07-04 15:33 | NUR ---
REPORT GIVEN TO GINNY @[facility].
--- NOTE | 2019-07-04 16:17 | NUR ---
SISTER, ALANNAH, UPDATED ON TRANSFER TO [facility].
--- NOTE | 2019-07-04 16:22 | NUR ---
PT OUT THE DOOR WITH [facility] IN STABLE CONDITION WITH IVF, LEVOPHED @2, PROPOFOL @20, & FFP INFUSING, ON TELE & VENT.
== END 2019-07-04 16:22 | disposition short-term general hospital (02) | DRG 871 ==
LOC: ED 02:46 → ED-I 03:45 → ED 05:23 → ICU 05:24
PROVIDERS: ADMIT Internal Medicine; ATTEND Internal Medicine
PROC: 5A09357 Assistance with Respiratory Ventilation, Less than 24 Consecutive Hours, Continuous Positive Airway Pressure (ICD-10-PCS; principal; 2019-07-04)
PROC: 30233K1 Transfusion of Nonautologous Frozen Plasma into Peripheral Vein, Percutaneous Approach (ICD-10-PCS; 2019-07-04)
PROC: 30233K1 Transfusion of Nonautologous Frozen Plasma into Peripheral Vein, Percutaneous Approach (ICD-10-PCS; 2019-07-04)
PROC: 0BH17EZ Insertion of Endotracheal Airway into Trachea, Via Natural or Artificial Opening (ICD-10-PCS; 2019-07-04)
PROC: 5A1935Z Respiratory Ventilation, Less than 24 Consecutive Hours (ICD-10-PCS; 2019-07-04)
PROC: 0BH17EZ Insertion of Endotracheal Airway into Trachea, Via Natural or Artificial Opening (ICD-10-PCS; 2019-07-04)
PROC: 02HV33Z Insertion of Infusion Device into Superior Vena Cava, Percutaneous Approach (ICD-10-PCS; 2019-07-04)
DX: A41.9 Sepsis, unspecified organism (principal); J18.9 Pneumonia, unspecified organism; J96.00 Acute respiratory failure, unspecified whether with hypoxia or hypercapnia; N17.9 Acute kidney failure, unspecified; J44.1 Chronic obstructive pulmonary disease with (acute) exacerbation; Z68.42 Body mass index [BMI] 45.0-49.9, adult; J44.0 Chronic obstructive pulmonary disease with (acute) lower respiratory infection; D68.32 Hemorrhagic disorder due to extrinsic circulating anticoagulants; R65.20 Severe sepsis without septic shock; I12.9 Hypertensive chronic kidney disease with stage 1 through stage 4 chronic kidney disease, or unspecified chronic kidney disease; N18.3 Chronic kidney disease, stage 3 (moderate); R58 Hemorrhage, not elsewhere classified; Q85.00 Neurofibromatosis, unspecified; E11.51 Type 2 diabetes mellitus with diabetic peripheral angiopathy without gangrene; E78.5 Hyperlipidemia, unspecified; G47.33 Obstructive sleep apnea (adult) (pediatric); T45.515A Adverse effect of anticoagulants, initial encounter; G40.909 Epilepsy, unspecified, not intractable, without status epilepticus; E11.22 Type 2 diabetes mellitus with diabetic chronic kidney disease; E66.01 Morbid (severe) obesity due to excess calories; S82.434D Nondisplaced oblique fracture of shaft of right fibula, subsequent encounter for closed fracture with routine healing; W19.XXXD Unspecified fall, subsequent encounter; Z86.718 Personal history of other venous thrombosis and embolism; Z91.81 History of falling; Z79.01 Long term (current) use of anticoagulants; Z86.73 Personal history of transient ischemic attack (TIA), and cerebral infarction without residual deficits; Z87.891 Personal history of nicotine dependence; Z86.711 Personal history of pulmonary embolism; Z78.1 Physical restraint status; Z87.01 Personal history of pneumonia (recurrent)
CPT/HCPCS: J1953; J2060; S0166

== ENCOUNTER 2019-09-07 | Emergency (ER) | payer MEDICARE, OTHER ==
[2019-09-07 15:58] LABS: HEMOGLOBIN 10.8 g/dl (14.0-18.0); IMMATURE GRANULOCYTES 0.6 % (0.0-5.0); MEAN CELL VOLUME 82.8 fL CALC (80.0-100.0); MEAN CORPUSCULAR HGB 24.8 pG CALC (26.0-32.0); NEUT# 6.24 thou/uL (1.82-7.42); RED BLOOD COUNT 4.35 mill/uL (4.70-6.10)
[2019-09-07 16:08] LABS: ALBUMIN 3.9 g/dL (3.2-5.0); ALKALINE PHOSPHATASE 77 u/l (38-126); ANION GAP 14 (6-22 (CALC)); BUN 10 mg/dL (8-23); CARBON DIOXIDE 25 mmol/l (22-30); CHLORIDE 101 mmol/l (95-108); POTASSIUM 3.8 mmol/l (3.5-5.1); SGOT/AST 17 u/l (19-48); SODIUM 137 mmol/l (137-146); TOTAL PROTEIN 7.3 g/dL (6.3-8.2)
[2019-09-07 16:09] LABS: BILIRUBIN, TOTAL 0.5 mg/dL (0.0-1.4); BUN/CREATININE RATIO 11 (12-20 (CALC)); CREATININE 0.9 mg/dL (0.7-1.3); GFR > 60 ML/MIN (>=60 (CALC)); GFR FOR AFR.AMER. > 60 ML/MIN (>=60 (CALC))
[2019-09-07] MEDS ORDERED: LOPRESSOR 550 MG/TAB PO (16:10)
[2019-09-07] MEDS ORDERED: COMBIVENT RESPIMAT IN (16:11)
[2019-09-07] MEDS ORDERED: GLIPIZIDE ER2.5 MG PO (16:11)
[2019-09-07] MEDS ORDERED: FENOFIBRATE54 MG PO (16:12)
[2019-09-07] MEDS ORDERED: DEXILANT60 MG PO (16:12)
[2019-09-07] MEDS ORDERED: SIMVASTATIN40 MG PO (16:12)
[2019-09-07 16:13] LABS: INTERNATIONAL NORMALIZED RATIO 1.9 RATIO (0.7-1.3); PROTHROMBIN TIME 19.1 SECONDS (9.0-12.5)
[2019-09-07] MEDS ORDERED: BUSPAR15 M1 PO (16:13)
[2019-09-07] MEDS ORDERED: FLUOXETINE HYDR40 MG PO (16:13)
[2019-09-07] MEDS ORDERED: OXYCODONE30 MG PO (16:14)
[2019-09-07] MEDS ORDERED: DESMOPRESSIN A0.2 MG PO (16:14)
[2019-09-07] MEDS ORDERED: GABAPENTIN600 MG PO (16:14)
[2019-09-07] MEDS ORDERED: METFORMIN HCL500 M2 PO (16:15)
[2019-09-07] MEDS ORDERED: NIFEDIPINE ER30 MG PO (16:15)
[2019-09-07] MEDS ORDERED: HYDROXYZ HCL25 MG PO (16:15)
[2019-09-07] MEDS ORDERED: LEVETIRACETAM500 MG PO (16:15)
[2019-09-07] MEDS ORDERED: WARFARIN SODIUM5 MG PO (16:16)
[2019-09-07] MEDS ORDERED: ATIVAN1 MG PO (16:16)
[2019-09-07] MEDS ORDERED: LASIX 40 MG TAB40 MG PO (16:17)
[2019-09-07] MEDS ORDERED: KEFLEX500 MG PO (16:41)
[2019-09-07] MEDS ORDERED: CLEOCIN300 MG PO (16:41)
== END 2019-09-07 18:03 | disposition home or self-care (01) ==
DX: L02.01 Cutaneous abscess of face (principal); Q85.00 Neurofibromatosis, unspecified; J44.9 Chronic obstructive pulmonary disease, unspecified; E11.51 Type 2 diabetes mellitus with diabetic peripheral angiopathy without gangrene; I10 Essential (primary) hypertension; Z79.84 Long term (current) use of oral hypoglycemic drugs

== ENCOUNTER 2020-01-19 23:05 | Inpatient (IN) | payer MEDICARE, MEDICAID ==
[~2020-01-19 23:05] MED LIST changes: +CLEOCIN300 MG PO; +FLUOXETINE HYDR40 MG PO; +GABAPENTIN600 MG PO; +GLIPIZIDE ER2.5 MG PO; +KEFLEX500 MG PO; +LOPRESSOR 550 MG/TAB PO; +METFORMIN HCL500 M2 PO; +NIFEDIPINE ER30 MG PO; +OXYCODONE30 MG PO; +WARFARIN SODIUM5 MG PO
[2020-01-19 23:44] LABS: HEMOGLOBIN 9.8 g/dl (14.0-18.0); IMMATURE GRANULOCYTES 0.4 % (0.0-5.0); MEAN CELL VOLUME 81.6 fL CALC (80.0-100.0); MEAN CORPUSCULAR HGB CONC 30.6 g/dL CAL (32.0-36.0); NEUT# 6.95 thou/uL (1.82-7.42); RED BLOOD COUNT 3.92 mill/uL (4.70-6.10); RED CELL DISTRI WIDTH 18.8 % (11.5-15.5)
[2020-01-19 23:57] LABS: ALBUMIN 4.1 g/dL (3.2-5.0); ALKALINE PHOSPHATASE 61 u/l (38-126); BILIRUBIN, TOTAL 0.4 mg/dL (0.0-1.4); BUN 50 mg/dL (8-23); CARBON DIOXIDE 26 mmol/l (22-30); CHLORIDE 103 mmol/l (95-108); SODIUM 136 mmol/l (137-146); TOTAL PROTEIN 7.7 g/dL (6.3-8.2)
[2020-01-19 23:59] LABS: BUN/CREATININE RATIO 12 (12-20 (CALC)); CREATININE 4.2 mg/dL (0.7-1.3); GFR 14 ML/MIN (>=60 (CALC)); GFR FOR AFR.AMER. 17 ML/MIN (>=60 (CALC))
[2020-01-20] VITALS (86 sets, daily range): BP systolic 73–1221; BP diastolic 42–79
[2020-01-20] LABS: ANION GAP 15 (6-22 (CALC)); POTASSIUM 7.9 mmol/l (3.5-5.1); SGOT/AST 31 u/l (19-48)
[2020-01-20 00:06] LABS: MYOGLOBIN 123 ng/mL (0 - 121)
--- NOTE | 2020-01-20 01:00 | NUR ---
PT RESTING. NAD. VSS.
--- NOTE | 2020-01-20 01:18 | NUR ---
LABS DRAWN. PT MEDICATED. O2 AT 2 LPM NC.
--- NOTE | 2020-01-20 01:35 | NUR ---
PT INCONT. TRIED TO URINATE IN URINAL BUT WAS HAVING DIFFICULTY GETTING SHORTS DOWN AND ENDED UP TAKING OFF MONITORS.
--- NOTE | 2020-01-20 01:35 | NUR ---
PER DR. ALCANTARA. GR INSERTED WITHOUT DIFFICULTY. DRAINING CLEAR MARC RINE..
[2020-01-20] MEDS ORDERED: LISINOPRIL20 MG PO (01:39)
[2020-01-20] MEDS ORDERED: K-DUR/KLOR-CON20 MEQ PO (01:39)
[2020-01-20] MEDS ORDERED: COMBIVENT RESPIMAT IN (01:43)
--- NOTE | 2020-01-20 01:48 | NUR ---
BLOOD CULTURES FROM LEFT HAND.
[2020-01-20 01:56] LABS: INTERNATIONAL NORMALIZED RATIO 6.2 RATIO (0.7-1.3); PROTHROMBIN TIME 59.7 SECONDS (9.0-12.5)
--- NOTE | 2020-01-20 01:56 | NUR ---
LALO BANGURA, CALLED PROTIME 59.7 INR 6.2 . HAVE NOT RECEIVED PT FROM ER. ER CALLED, RESULTS GIVEN TO AN.
[2020-01-20 02:05] LABS: URINE BILIRUBIN - DIPSTICK NEGATIVE (NEGATIVE); URINE BLOOD DIPSTICK NEGATIVE (NEGATIVE); URINE COLOR YELLOW; URINE GLUCOSE - DIPSTICK NEGATIVE (NEGATIVE); URINE KETONE NEGATIVE (NEGATIVE); URINE LEUK ESTERASE NEGATIVE (NEGATIVE); URINE NITRITE - DIPSTICK NEGATIVE (Negative); URINE PROTEIN - DIPSTICK TRACE mg/dL (NEG-TRACE); URINE SPECIFIC GRAVITY 1.015; URINE UROBILINOGEN - DIPSTICK 0.2 E.U./dL (0.2)
[2020-01-20 02:07] LABS: BARBITURATES NEGATIVE (NEGATIVE); COCAINE NEGATIVE (NEGATIVE); METHADONE NEGATIVE (NEGATIVE); OXCYCODONE POSITIVE (NEGATIVE); TETRAHYDROCANNABIONOL NEGATIVE (NEGATIVE); TRICYLIC ANTIDEPRESSANTS NEGATIVE (NEGATIVE)
--- NOTE | 2020-01-20 02:20 | NUR ---
REPEAT POTASSIUM LEVEL DRAWN.
--- NOTE | 2020-01-20 02:40 | NUR ---
REPORT TO EVONNE JAQUEZ/ICU
--- NOTE | 2020-01-20 02:42 | NUR ---
RECEIVED REPORT FROM MORENITA DOUGLASS.
--- NOTE | 2020-01-20 02:45 | NUR ---
TO ROOM VIA STRETCHER WITH MONITOR/O2/IV ANTIBIOTICS INFUSING. PT A/O. NAD.
--- NOTE | 2020-01-20 02:55 | NUR ---
RECEIVED PT TO ICU RM 1 VIA STRETCHER. PT AAOX3, DENIED SOB. PT TRANSFERRED TO ICU BED WITHOUT INCIDENT.
--- NOTE | 2020-01-20 03:00 | NUR ---
PT AWAKE AND ALERT, ANSWERS QUESTIONS APPROPRIATELY, FOLLOWS COMMANDS. SKIN RED UNDER R AXILLA. SCAB NOTED TO L #2 TOE, SCAB NOTED TO L ELBOW AREA. PT RELATED THEY WERE FROM PREVIOUS FALLS.
--- NOTE | 2020-01-20 03:20 | NUR ---
LALO FROM LAB CALLED, K+ AT 7.1
--- NOTE | 2020-01-20 03:25 | NUR ---
K+ LAB DRAW ACCOMP.
--- NOTE | 2020-01-20 04:00 | NUR ---
PT WITH EYES CLOSED, NO RESP DISTRESS NOTED. CALL MARCIAL IN REACH.
--- NOTE | 2020-01-20 04:30 | NUR ---
CALLED DR ALCANTARA FOR B/P /50. VERBAL ORDER TO START LEVOPHED GTT. RBVO.
--- NOTE | 2020-01-20 05:43 | NUR ---
B/P, LABS, ACCU CHECK REVIEWED WITH DR ALCANTARA. NO ORDERS RECEIVED.
--- NOTE | 2020-01-20 06:45 | NUR ---
REPORT RECEIVED FROM GISELE DOUGLASS. CARE ASSUMED.
--- NOTE | 2020-01-20 06:53 | NUR ---
REPORT TO MELVIN DOUGLASS.
--- NOTE | 2020-01-20 07:00 | NUR ---
DR CURRIE CALLED FOR UPATE. UPDATE PROVIDED. NEW ORDERS RECEIVED.
--- NOTE | 2020-01-20 07:10 | NUR ---
DR WAGNER NOTIFIED OF NEED FOR CENTRAL LINE PLACEMENT.
--- NOTE | 2020-01-20 07:30 | NUR ---
PT RESTING IN BED WITH EYES CLOSED. AROUSES SLOWLY T VERBAL STIMULI. ALERT TO SELF ONLY. WILL CONTINUE TO TRY AND AROUSE PATIENT. IV PATENT X1. SHIFT ASSESS,ENT COMPLETED. CALL LIGHT IN REACH. WILL CONTINUE TO MONITOR.
--- NOTE | 2020-01-20 07:50 | NUR ---
DR WAGNER AT BEDSIDE FOR CENTRAL LINE PLACEMENT.
--- NOTE | 2020-01-20 08:15 | NUR ---
PT CONTINUES TO BE SLUGGISH TO AROUSE. WILL HOLD AM MEAL UNTIL PT IS AWAKE AND ABLE TO EAT. RT AT BEDSIDE AT THIS TIME FOR NEB TREATMENT.
--- NOTE | 2020-01-20 08:20 | NUR ---
RADIOLOGY AT BEDSIDE FOR PORTABLE CHEST XRAY. LEVOPHED TITRATED PER TITRATION CHARTING
[2020-01-20 08:57] LABS: ALKALINE PHOSPHATASE 62 u/l (38-126); ANION GAP 18 (6-22 (CALC)); BILIRUBIN, TOTAL 0.4 mg/dL (0.0-1.4); BUN 51 mg/dL (8-23); BUN/CREATININE RATIO 13 (12-20 (CALC)); CARBON DIOXIDE 24 mmol/l (22-30); CHLORIDE 105 mmol/l (95-108); GFR 15 ML/MIN (>=60 (CALC)); GFR FOR AFR.AMER. 18 ML/MIN (>=60 (CALC)); SGOT/AST 46 u/l (19-48); SODIUM 139 mmol/l (137-146); TOTAL PROTEIN 7.6 g/dL (6.3-8.2)
--- NOTE | 2020-01-20 09:02 | NUR ---
DR WAGNER CALLED AND STATED THAT CENTRAL LINE IS GOOD FRO USE.
--- NOTE | 2020-01-20 09:13 | NUR ---
RT AT BEDSIDE FOR ABG
--- NOTE | 2020-01-20 09:45 | NUR ---
SISTER ALANNAH CALLED FOR UPDATE. CODE PROVIDED. VERIFIED THAT SHE IS LISTED NEXT OF KIN. UPDATE PROVIDED.
--- NOTE | 2020-01-20 09:47 | NUR ---
PT PLACED ON BIPAP AT THIS TIME.
--- NOTE | 2020-01-20 10:03 | NUR ---
ABG ORDERED 7./55/95/24.4/95% PT PLACED ON BIPAP PER DR. CURRIE. PT RESTING TOLLERATING WELL AT THIS TIME. EVONNE CHARLES AWARE. WILL REPEAT ABG ORDERED.
--- NOTE | 2020-01-20 10:30 | NUR ---
LABS OBTAINED FROM [facility]. PT TOLERATED WELL.
--- NOTE | 2020-01-20 11:36 | NUR ---
SISTER ALANNAH CALLED FOR UPDATE. SPOKE WITH PRIMARY MD AND MD WILL SEND RECORDS.
--- NOTE | 2020-01-20 12:00 | NUR ---
PT RESTING IN BED WITH EYES CLOSED ON BIPAP. RESP ARE EVEN AND UNLABORED. NO DISTRESS NOTED. CALL LIGHT IN REACH. WILL CONTINUE TO MONITOR.
--- NOTE | 2020-01-20 12:07 | NUR ---
SPOKE WITH SISTER ALANNAH. SHE WILL BRING MEDICATIONS UP LATER TODAY.
--- NOTE | 2020-01-20 13:21 | NUR ---
PT ASSISTED UP TO BSC FOR BM. INSTRUCTED TO CALL FOR HELP UPON COMPLETTION.
--- NOTE | 2020-01-20 13:36 | NUR ---
HOME MEDICATIONS RECEIVED AND COUNTED WITH PHARMACIST MIK. SENT TO PHARMACY.
--- NOTE | 2020-01-20 14:01 | NUR ---
PT RESTING IN BED WITH EYES CLOSED. RESP ARE EVEN AND UNLABORED ON BIPAP. DR CURRIE UPDATED ON PATIENT STATUS. NEW ORDERS RECEIVED. CALL LIGHT IN REACH. WILL CONTINUE TO MONITOR.
--- NOTE | 2020-01-20 16:00 | NUR ---
PT RESTING IN BED ON BIPAP. PT CONTINUES TO BE SLOW TO AROUSE AT THIS TIME. CALL LIGHT IN REACH. WILL CONTINUE TO MONITOR.
--- NOTE | 2020-01-20 16:18 | NUR ---
UPDATED DR CURRIE ON PT STATUS. NEW ORDERS RECIEVED. CH7 DRAWN FROM [facility].
--- NOTE | 2020-01-20 16:21 | NUR ---
RT AT BEDSIDE FOR ABG AT THIS TIME.
[2020-01-20 17:04] LABS: CREATININE 3.3 mg/dL (0.7-1.3)
[2020-01-20 17:06] LABS: POTASSIUM 6.7 mmol/l (3.5-5.1)
--- NOTE | 2020-01-20 17:09 | NUR ---
DR CURRIE NOTIFIED OF LAB RESULTS AND ABG RESULTS.
--- NOTE | 2020-01-20 18:03 | NUR ---
UPDATED DR CURRIE ON PTS STATUS. PT STILL DIFFICULT TO AROUSE. LEFT LUNGS CTA, RIGHT LUNGS DIMINISHED- NO AIR MOVING. PT APNIC ON MONITOR WITH MOMENTS OF PAUSING & GASPING ON BIPAP. MD RESPONDS TO RECOMMENDATION OF INTUBATION. ER MD/ DR WAGNER CALLED TO ROOM. DR WAGNER SPOKE WITH DR CURRIE PRIOR TO INTUBATION. RT CALLED TO ROOM.
--- NOTE | 2020-01-20 18:15 | NUR ---
DR WAGNER AT BEDSIDE. PT AROUSES AND STATES NO LEAVE ME ALONE.
--- NOTE | 2020-01-20 18:22 | NUR ---
CALLED TO PT ROOM BY EVONNE MAIER TO INTUBATE OATIENT. ORDERS PER DR. CURRIE. INTUBATION SET UP AND VWNT PLACED BY DOOR. ARRIVED AFTER SPEAKING WITH PATIENT NO INTUBATION TOOK PLACE. DR. CURRIE WAS NOTIFIED BY DR. WAGNER. EVONNE CHARLES AWARE AND AT BEDSIDE.
--- NOTE | 2020-01-20 18:30 | NUR ---
BLOOD DRAWN FROM CENTRAL LINE FOR TROP.
--- NOTE | 2020-01-20 18:42 | NUR ---
DR CURRIE CALLED FOR UPDATE. ASKED THAT THIS NURSE AGAIN ASK PATIENT TO ALLOW INTUABTION. THIS NURSE INTO ROOM. PT STATES I DON'T WNAT TO BE ASLEEP FOREVER. EXPLAINED THAT HE WILL BE PUT TO SLEEP FOR INTUBATION. PT AGREEABLE FOR INTUBATION. DR WAGNER NOTIFIED.
--- NOTE | 2020-01-20 19:03 | NUR ---
ETT READILY PLACED BY DR WAGNER AFTER AMIDTE 20 AND ROCURONIUM 100MG GIVEN IV. ETT SECURED AT 22CM LIP LINE. VENT SEETTINGS ASSIST CONTROL. RATE 18. TV: 550, Fi02 50% AND PEEP 5. TOLERATING WELL.
--- NOTE | 2020-01-20 19:20 | NUR ---
O/G PLACED AND PLACEMENT VERIFIED VIA AUSCULATATION AND TO LIS. DIPRIVAN STARTED AND INFUSING RX. HOB ELEVATED. IV MEDS AND FLUIDS VIA TLCL RIGHT CHEST
--- NOTE | 2020-01-20 19:43 | NUR ---
RN CALLED FOR INTUBATION. DR LOVE INTUBATED THE PATIENT WIENT ETT # 8 AT 22 CM OF THE LIPS. TUBE PLACEMENT VERIFIED BY CO2 DETECTOR, LUNGS SOUNG AND THEN X-RAY. PLACED ON VENTILATOR.
--- NOTE | 2020-01-20 19:50 | NUR ---
REPEAT ABG COMPLETED BY RT. INCREASED DIPRIVAN TO 10
--- NOTE | 2020-01-20 22:00 | NUR ---
KEPPRA CHANGED TO IV FORM. RECEIVED RX-NO SEIZURE ACTIVITY NOTED
[2020-01-20 22:27] LABS: POTASSIUM 6.5 mmol/l (3.5-5.1)
--- NOTE | 2020-01-20 22:30 | NUR ---
TITRATING DIPRIVAN NEEDED TO PROVIDE COMFORT. BITING ON ETT AT TIMES AND HAVING PERIODIC COUGH
[2020-01-21] VITALS (75 sets, daily range): BP systolic 80–165; BP diastolic 45–86
--- NOTE | 2020-01-21 00:05 | NUR ---
BLOOD DRAWN AND TO LAB FOR MIDNIGHT TROPONIN. TOLERATING VENT
--- NOTE | 2020-01-21 00:14 | NUR ---
CONTINUES TO HAVE A LARGE AMOUT OF CLEAR ORAL EXRESTIONS REQUIRING FREQUENT SUCTIONING. PERIODIC COUGH. DEEP SUCTIONING NEEDED WITH MODERATE AMOUNT OF THICJ SECRETIONS
--- NOTE | 2020-01-21 01:30 | NUR ---
BEDRESTING. NO DISTRESS NOTED. CONMTINUES TO HAVE A LARGE AMOUNT OF ORAL SECRESTIONS.
--- NOTE | 2020-01-21 02:30 | NUR ---
NS, LEVOPHED AND DIPRIVAN CONTINUE TO INFUSE VIA TLCL ORDERED. HAS STRAW COLORED URINE TO BSD. FREQUENT ORAL SUCTIONING NEEDED AND PROVIDED. PT ARROUSES WITH STIMULATION. OTHERWISE, APPEARS TO BE RESTING. VENT SETTINGS REMAIN UNCHANGED
--- NOTE | 2020-01-21 04:00 | NUR ---
COMPLETE BED BATH PROVIDED. AXILLA ARE RED. PT TURNED AND REPOSITIONED. DURING ACTIVITY, HE SQUEEZED STAFF'S HAND BUT TOLERATED ACTIVITY WELL. AFTER, TLCL DRESSING CHANGED IT APPEARED TO HAVE A LARGE AMOUNT OF BLOOD AT SITE AND OUTTER EDGES ARE STARTING TO LOOSEN. AREA CLEANED. SUTURES REMAIN IN TACT. NEW DRESSING APPLIED
--- NOTE | 2020-01-21 04:45 | NUR ---
WHILE SUCTIONSING PATIENT, HE SHOOK HEAD AGREEING THAT HE COULD BREATHE BETTER AFTER BEING SUCTIONED.
[2020-01-21 05:12] LABS: HEMATOCRIT 30.3 % (39.0-50.0); HEMOGLOBIN 9.3 g/dl (14.0-18.0); MEAN CELL VOLUME 82.1 fL CALC (80.0-100.0); MEAN CORPUSCULAR HGB 25.2 pG CALC (26.0-32.0); MEAN CORPUSCULAR HGB CONC 30.7 g/dL CAL (32.0-36.0); RED BLOOD COUNT 3.69 mill/uL (4.70-6.10); RED CELL DISTRI WIDTH 18.8 % (11.5-15.5)
--- NOTE | 2020-01-21 05:21 | NUR ---
RT AT BEDSIDE FOR AM ABG
[2020-01-21 05:22] LABS: ALBUMIN 3.5 g/dL (3.2-5.0); BILIRUBIN, TOTAL 0.4 mg/dL (0.0-1.4); CREATININE 2.8 mg/dL (0.7-1.3); MAGNESIUM 1.7 mg/dL (1.6-2.3); TOTAL PROTEIN 6.9 g/dL (6.3-8.2)
[2020-01-21 05:25] LABS: POTASSIUM 5.7 mmol/l (3.5-5.1)
--- NOTE | 2020-01-21 05:26 | NUR ---
RT OBTAINED SPUTUM SPECIMEN. APPEARED THICK THORPE.
[2020-01-21 05:27] LABS: PROTHROMBIN TIME 89.8 SECONDS (9.0-12.5)
[2020-01-21 05:28] LABS: INTERNATIONAL NORMALIZED RATIO 9.5 RATIO (0.7-1.3)
--- NOTE | 2020-01-21 06:45 | NUR ---
REPORT RECEIVED FROM Trina CALVO RN. CARE ASSUMED.
[2020-01-21 07:09] LABS: C-REACTIVE PROTEIN 3.8 mg/dL (0-0.9)
--- NOTE | 2020-01-21 07:09 | NUR ---
DR. WAGNER AT BEDSIDE FOR ASSESSMENT AND TO ADVANCE ET TUBE, RADIOLOGY CALLED FOR CXR TO VERIVY PLACEMENT.
--- NOTE | 2020-01-21 07:17 | NUR ---
RADIOLOGY AT BEDSIDE AT THIS TIME FOR REPEAT CXR
--- NOTE | 2020-01-21 07:20 | NUR ---
PT RESTING IN BED INTUBATED AND SEDATED. VSS ON MONITOR. LEVOPHED TITRATED PER TITRATION CHARTING. IV PATENT X1. CALL SHIFT ASSESSMENT COMPLETED AT THIS TIME. IV PATENT X1. WILL CONTINUE TO CLOSELY MONITOR.
--- NOTE | 2020-01-21 07:40 | NUR ---
POROFOL BOLUS OF 50MG GIVEN BY DR WAGNER. ROCORONIUM 100MG GIVEN BY DR WAGNER WELL. PT TOLERATED WELL.
--- NOTE | 2020-01-21 07:42 | NUR ---
ET TUBE ADVANCED TO 27 CM AT THE LIP BY DR. WAGNER. XRAY CONFIRMED PLACEMENT.
--- NOTE | 2020-01-21 07:50 | NUR ---
OG REPLACED POST ET TUBE ADVANCEMENT VERIFIED WITH XRAY AND AUSCULTATION.
--- NOTE | 2020-01-21 07:59 | NUR ---
CHANDANA OSBORNE FROM RADIOLOGY CALLED AND STATED THAT TUBE NEEDED TO BE ADVANCED AGAIN. ASKED THAT HE NOTIFY DR WAGNER.
--- NOTE | 2020-01-21 08:00 | NUR ---
CHANDANA OSBORNE CALLED BACK AND STATES THAT ET TUBE IN GOOD POSITION
--- NOTE | 2020-01-21 08:04 | NUR ---
ALANNAH RIVERS PHONED FOR UPDATE. UPDATE PROVIDED AT THIS TIME.
--- NOTE | 2020-01-21 09:00 | NUR ---
DR CURRIE AT BEDSIDE AT THIS TIME
--- NOTE | 2020-01-21 09:16 | NUR ---
CALLED [facility] AND SPOKE TO JESUS. TOLD HER I NEEDED AN AIR MATTRESS. GAVE PT NAME AND ROOM NUMBER WAS GIVEN CONFIRMATION NUMBER [id number].
--- NOTE | 2020-01-21 10:11 | NUR ---
TITRATION OF LEVOPHED AND PROPOFOL PER TITRATION CHARTING. PT TOLERATING WELL. PT REMAINS INTUBATED AND SEDATED. VSS ON MONITOR. WILL CONTINUE TO MONITOR.
--- NOTE | 2020-01-21 10:47 | NUR ---
PATIENT SUCTIONED BY THIS NURSE AND RT. ORAL CARE PROVIDED. PT TOLERATED WELL.
--- NOTE | 2020-01-21 10:55 | NUR ---
FIO2 DECREASED TO 40%
--- NOTE | 2020-01-21 11:56 | NUR ---
PT RESTING IN BED INTUBATED AND SEDATED AT THIS TIME. VSS ON MONITOR. IV PATENT X1. WILL CONTINUE TO CLOSELY MONITOR.
--- NOTE | 2020-01-21 12:35 | NUR ---
DR NEWTON AT BEDSIDE.NO NEW ORDERS AT THIS TIME.
--- NOTE | 2020-01-21 12:55 | NUR ---
PT TRANSFERREDD X5 STAFF MAX ASSIST TO AIR MATTRESS. WITH RT AT BEDSIDE. PT SUCTIONED AND ORAL CARE COMPLETED. PT TOLERATED WELL.
--- NOTE | 2020-01-21 14:30 | NUR ---
PT RESTING IN BED INTUBATED AND SEDATED. NO DISTRESS NOTED. VSS ON MONITOR. WILL CONTINUE TO CLOSELY MONITOR.
--- NOTE | 2020-01-21 16:00 | NUR ---
PT RESTING IN BED INTUBATED AND SEDATED. VSS ON MONITOR. WILL CONTINUE TO [facility] MONITOR.
--- NOTE | 2020-01-21 17:20 | NUR ---
PROPOFOL TUBING CHANGED AT THIS TIME. INCREASED PROPOFOL PER TITRATION CHARTING
--- NOTE | 2020-01-21 18:19 | NUR ---
SISTER ALANNAH PHONED FOR UPDATE. UPDATE PROVIDED.
--- NOTE | 2020-01-21 20:00 | NUR ---
PATIENT RESTING WITH EYES CLOSED. REMAINS ORALLY INTUBATED AND ON VENTILATOR. BREATH SOUNDS DIMINISHED THROUGHOUT. O2 SAT 100% RIJTLC INTACT WITH NS AT 150 ML/HR, LEVOPHED GTT AT 2 MCG/MIN, AND PROPOFOL GTT AT 45 MCG/KG/MIN. RASS -2. SHIFT ASSESSMENT COMPLETED. PATIENT ON AIR MATTRESS AND SCD'S IN PLACE. VSS.
--- NOTE | 2020-01-21 22:00 | NUR ---
CONTINUES RESTING CALMLY AND QUIETLY. OPENS EYES BRIEFLY TO NAME.
[2020-01-22] VITALS (35 sets, daily range): BP systolic 98–146; BP diastolic 57–86
--- NOTE | 2020-01-22 | NUR ---
PATIENT OPENS EYES BRIEFLY TO NAME. NODS HEAD IN RESPONSE TO YES/NO QUESTIONS. RASS -2. LEVOPHED CONTINUES AT 2 MCG/MIN AND DIPRIVAN AT 45 MCG/KG/MIN. AFEBRILE, VSS. MONITOR SR WITH 1 [address] DEGREE AVB AND IVCD.
--- NOTE | 2020-01-22 02:03 | NUR ---
NO CHANGES TO REPORT AT THIS TIME.
--- NOTE | 2020-01-22 04:15 | NUR ---
COMPLETE BED BATH AND LINENS CHANGED. PATIENT OPENS EYES TO NAME, CALM AND COOPERATIVE. MOUTHING WORDS. ASSISTED WITH TURNING FROM SIDE TO SIDE. NODS HEAD TO ANSWER YES/NO QUESTIONS.
--- NOTE | 2020-01-22 04:30 | NUR ---
PORTABLE CHEST XRAY TAKEN.
--- NOTE | 2020-01-22 05:10 | NUR ---
BLOOD DRAWN FROM TLC FOR AM LABS ORDERED. PORT FLUSHED PER PROTOCOL POST LAB DRAW.
[2020-01-22 05:18] LABS: HEMATOCRIT 29.1 % (39.0-50.0); MEAN CELL VOLUME 80.8 fL CALC (80.0-100.0); MEAN CORPUSCULAR HGB CONC 30.9 g/dL CAL (32.0-36.0); RED BLOOD COUNT 3.6 mill/uL (4.70-6.10); RED CELL DISTRI WIDTH 18.8 % (11.5-15.5)
[2020-01-22 05:35] LABS: ALBUMIN 3.2 g/dL (3.2-5.0); BILIRUBIN, TOTAL 0.5 mg/dL (0.0-1.4); CREATININE 2.1 mg/dL (0.7-1.3); POTASSIUM 4.9 mmol/l (3.5-5.1); TOTAL PROTEIN 6.3 g/dL (6.3-8.2)
[2020-01-22 05:44] LABS: INTERNATIONAL NORMALIZED RATIO 1.5 RATIO (0.7-1.3); PROTHROMBIN TIME 15.4 SECONDS (9.0-12.5)
--- NOTE | 2020-01-22 06:00 | NUR ---
RESTING WITH EYES CLOSED. VENT SETTINGS UNCHANGED. PROPOFOL CONTINUES AT 45 MCG/KG/MIN. LEVOPHED AT 1 MCG/MIN.
--- NOTE | 2020-01-22 06:37 | NUR ---
WEANED FIO2 TO .30 PER PT SPO2. NO DISTRESS NOTED. [employer] CHAIR TO MONITOR.
--- NOTE | 2020-01-22 06:45 | NUR ---
[facility]
--- NOTE | 2020-01-22 07:00 | NUR ---
PT RESTING IN BED AWAKE AND INTUBATED. EXPLAINED THAT WE WOULD TRY AND WORK ON DECREASING SEDATION TO ABLE TO EXTUBATE TODAY. PATIENT NODDED HEAD IN UNDERSTANDING. SHIFT ASSESSMENT COMPLETED AT THIS TIME. IV PATENT X1. CALL LIGHT IN REACH. WILL CONTINUE TO MONITOR.
--- NOTE | 2020-01-22 07:53 | NUR ---
SPOKE WITH DR GOVEA TO [facility]
--- NOTE | 2020-01-22 08:02 | NUR ---
PT ABLE TO FOLLOW COMMANDS AT THIS TIME. DR CURRIE NOTIFIED.
--- NOTE | 2020-01-22 08:20 | NUR ---
PT EXTUBATED AT THIS TIME. PT TOLERATED WELL. PT PLACED ON O2 2L NC. PT O2 SATS 99%. CALL LIGHT IN REACH. WILL CONTINUE TO CLOSELY MONITOR
--- NOTE | 2020-01-22 08:23 | NUR ---
PT EXTUBATED AND PLACED ON 2L NC
--- NOTE | 2020-01-22 08:35 | NUR ---
PT PLACED ON BED COLLADO AT THIS TIME. PT ALSO PROVIDED WATER AND ICE CHIPS. ENCOURAGED TO TAKE IT SLOW WITH PO FLUIDS. PT VERBALIZED UNDERSTANDING.
--- NOTE | 2020-01-22 08:50 | NUR ---
PT ASSISTED OF OF BEDPAN. PT HAD LARGE BROWN FORMED BOWEL MOVEMENT. DR CURRIE AT BEDSIDE.
--- NOTE | 2020-01-22 09:27 | NUR ---
SISTER JONNATHAN PHONED FOR UPDATE. UPDATE PROVIDED.
--- NOTE | 2020-01-22 10:00 | NUR ---
PT RESTING IN BED AWAKE. PT IS ALERT AND ORIENTED X3. VSS ON MONITOR. RESP ARE EVEN AND UNLABORED. CALL LIGHT IN REACH. WILL CONTINUE TO MONITOR.
--- NOTE | 2020-01-22 11:15 | NUR ---
PT AT BEDSIDE AT THIS TIME. ASSISTED PT UP TO SIDE OF BED AT THIS TIME. PT THEN SET UP FOR NOON MEAL.
--- NOTE | 2020-01-22 11:31 | NUR ---
PT ASSISTED UP TO BSC AT THIS TIME.
--- NOTE | 2020-01-22 11:40 | NUR ---
PT note Patient is seen for intial eval. He has been extubated. He is agreeable to sitting EOB for his lunch. He requires min assist with bed mobility wehn given time to move. He is limited by wheezing/ rohonchi - dyspnea but otherwiae is stable when transitioning from supine to sit. He has trophoc changes to the LEs with 2 plus edema. His am pac is 12 and he would benefit from ECF although he tells me he will refuse that and go directly home. If that is the case, he would benefit from home health to follow up for improved strengthening, energy conservation and gait training to decrease the burden of care and help with improving his independence
--- NOTE | 2020-01-22 11:44 | NUR ---
PT HAD LARGE LOOSE BM. PT CLEANSED AND ASSISTED BACK TO SITTING UP ON SIDE OF BED. LINENS CHANGED WELL. PT TOLERATED TRANSFER WELL
--- NOTE | 2020-01-22 12:18 | NUR ---
PT ASSISTED TO BSC FOR BM. PT TOLERATED TRANSFER WELL.
--- NOTE | 2020-01-22 12:30 | NUR ---
DR NEWTON INTO SEE PATIENT AT THIS TIME.
--- NOTE | 2020-01-22 12:56 | NUR ---
PT ASSISTED BACK TO BED. PT ENCOURAGED TO REST. CALL LIGHT IN REACH. WILL CONTINUE TO MONITOR.
--- NOTE | 2020-01-22 14:53 | NUR ---
PT RESTING IN BED WITH EYES CLOSED. RESP ARE EVEN AND UNLABORED. NO DISTRESS NOTED. CALL LIGHT IN REACH. WILL CONTINUE TO MONITOR.
--- NOTE | 2020-01-22 15:30 | NUR ---
CENTRAL LINE DRESSING CHANGE COMPLETED AT THIS TIME USING STERILE TECHNIQUE. PT TOLERATED WELL. PT RESTING IN BED WATCHING TV. VSS ON MONITOR. CALL LIGHT IN REACH. WILL CONTINUE TO MONITOR.
--- NOTE | 2020-01-22 16:20 | NUR ---
physical therapy at bedside at this time.
--- NOTE | 2020-01-22 17:57 | NUR ---
PT SET UP FOR PM MEAL AT THIS TIME.
--- NOTE | 2020-01-22 20:00 | NUR ---
RESTING IN BED ON ROUNDS. AWAKE, ALERT AND ORIENTED. RESP NON-LABORED. BREATH SOUNDS DIMINISHED THROUGHOUT. OCC MOIST COUGH NOTED. SHIFT ASSESSMENT COMPLETED. VSS. SR WITH IST DEGREE AVB AND IVCD ON MONITOR. DISCUSSED PLAN OF CARE. DENIES NEEDS AT THIS TIME. CALL MARCIAL IN REACH.
--- NOTE | 2020-01-22 21:15 | NUR ---
ACCU CHECK 139, NO COVERAGE REQUIRED PER SS PROTOCOL. TAKING PUDDING FOR HS SNACK.
--- NOTE | 2020-01-22 22:00 | NUR ---
WATCHING TV. NO COMPLAINTS VOICED.
[2020-01-23] VITALS (8 sets, daily range): BP systolic 112–149; BP diastolic 54–84
--- NOTE | 2020-01-23 01:50 | NUR ---
PATIENT C/O CANNOT GET TO SLEEP. MEDICATED WITH SONATA 5 MG PO FOR SLEEP. C/O AIR MATTRESS IS UNCOMFORTABLE FOR HIM. PATIENT CHANGED BACK TO REGULAR MATTRESS.
--- NOTE | 2020-01-23 02:05 | NUR ---
ASSISTED UP TO BSC. HAD LARGE AMOUNT OF LIQUIDY STOOL. PATIENT ABLE TO STAND TO PIVOT ONTO BSC. VSS. RESP NON-LABORED.
--- NOTE | 2020-01-23 04:00 | NUR ---
ASLEEP. RESP NON-LABORED. VSS.
[2020-01-23 05:47] LABS: ALBUMIN 3.1 g/dL (3.2-5.0); CREATININE 2.3 mg/dL (0.7-1.3); POTASSIUM 4.4 mmol/l (3.5-5.1)
[2020-01-23 05:51] LABS: PROTHROMBIN TIME 15.5 SECONDS (9.0-12.5)
[2020-01-23 05:52] LABS: INTERNATIONAL NORMALIZED RATIO 1.5 RATIO (0.7-1.3)
--- NOTE | 2020-01-23 06:00 | NUR ---
NO CHANGES TO REPORT. VSS. SLEPT WELL AFTER SLEEPING PILL GIVEN EARLIER.
--- NOTE | 2020-01-23 07:30 | NUR ---
REPORT RECEIVED FROM NIGHT NURSE. PT RESTING IN BED WATCHING TV. NO DISTRESS NOTED. PT DENIES PAIN AND SOB AT THIS TIME. WLL CONTINUE TO MONITOR.
--- NOTE | 2020-01-23 08:40 | NUR ---
DR. CURRIE AT BEDSIDE TO ASSESS PT
--- NOTE | 2020-01-23 09:00 | NUR ---
PER DR. CURRIE D/C GR. GR D/C. PT GIVEN URINAL TO VOID WILL CONTINUE TO MONITOR.
--- NOTE | 2020-01-23 10:00 | NUR ---
SPOKE TO SISTER GLADIS AND UPDATED HER ON PATIENT STATUS.
--- NOTE | 2020-01-23 10:34 | NUR ---
PT RESTING IN BED. NO DISTRESS NOTED. DENIES PAIN AT THIS TIME. WILL CONTINUE TO MONITOR.
--- NOTE | 2020-01-23 12:03 | NUR ---
PT SITTING UP AT THE EDGE OF THE BED TO EAT LUNCH. NO DISTRESS NOTED. DENIES PAIN AND SOB AT THIS TIME. WILL CONTINUE TO MONITOR.
--- NOTE | 2020-01-23 14:02 | NUR ---
PT RESTING IN BED. NO DISTRSS NOTED. DENIES SOB. DENIES PAIN. WILL CONTINUE TO MONITOR.
--- NOTE | 2020-01-23 14:10 | NUR ---
PHYSICAL THERAPY AT BEDSIDE WORKING WITH PATIENT
--- NOTE | 2020-01-23 15:50 | NUR ---
REPORT GIVEN TO NURSE CALLES
--- NOTE | 2020-01-23 16:00 | NUR ---
PT TRANSFERRED TO [facility] VIA WHEELCHAIR. PT IN STABLE CONDITION. PT TRANSFERRED ON OXYGEN. PT AMBULATED FROM WHEEL CHAIR TO BED WITH STEADY GATE. ALL BELONGINGS SENT WITH PATIENT. MEDICATIONS AND MEDICAL CHART SENT WITH PATIENT. NO DISTRESS NOTED.
--- NOTE | 2020-01-23 16:01 | NUR ---
PT ARRIVED TO UNIT VIA WHEELCHAIR WITH ICU STAFF; ALERT AND ORIENTED. DENIES PAIN. RESPIRATIONS EVEN AND UNLABORED ON OXYGEN 2L VIA NC. ORIENTED TO ROOM AND CALL LIGHT SYSTEM. LUNGS DIMINISHED WITH WHEEZING ON LEFT SIDE. EDEMA TO BLE WITH DISCOLORATION. PLAN OF CARE REVIEWED. PT ENCOURAGED TO VERBALIZE CONCERNS. REQUESTED WARM BLANKET; PROVIDED. SAFETY MEASURES IN PLACE. CALL LIGHT WITHIN REACH.
--- NOTE | 2020-01-23 17:41 | NUR ---
IV FLUIDS INFUSING WIHTOUT DIFFICULTY AT KVO; TL RIJ DRESSING REINFORCED WITH TAPE. ZOSYN INFUSING AT THIS TIME. TELE ON. PT SITTING UP ON EDGE OF BED EATING DINNER. ACCU CHECK 125. NO REQUESTS OR CONCERNS AT THIS TIME.
--- NOTE | 2020-01-23 19:16 | NUR ---
REPORT FROM STEVAN DOUGLASS. PT SITTING UP IN BED WATCHING TV. ALERT AND ORIENTED. NO APPARENT DISTRESS NOTED. 02 @ 2L/M VIA NC. TRIPLE LUMEN NOTED TO RIGHT IJ, CDI. PT DENIES ANY CURRENT WANTS OR NEEDS. DISCUSSED POC. VERBALIZED UNDERSTANDING. PT DENIES ANY PAIN OR DISCOMFORT. CALL LIGHT WITHIN REACH. WILL CONTINUE TO MONITOR.
--- NOTE | 2020-01-23 23:11 | NUR ---
DRESSING TO TRIPLE LUMEN RIGHT IJ CHANGED PER PROTOCOL, NECK AREA SHAVED FOR BETTER SEAL OF DRESSING LAST ONES EDGES LIFTING. PT TOLERATED WELL.
[2020-01-24] VITALS: BP 166/94
--- NOTE | 2020-01-24 03:29 | NUR ---
PT RESTING IN BED WITH EYES CLOSED. NO APPARENT DISTRESS NOTED. O2 @ 2L/M VIA NC. IV SITE APPEARS HEALTHY AND CDI. CALL LIGHT WITHIN REACH. WILL CONTINUE TO MONITOR.
[2020-01-24 04:18] VITALS: BP 147/93
[2020-01-24 05:05] LABS: INTERNATIONAL NORMALIZED RATIO 1.6 RATIO (0.7-1.3); PROTHROMBIN TIME 16.7 SECONDS (9.0-12.5)
[2020-01-24 05:07] LABS: ALBUMIN 3.3 g/dL (3.2-5.0); CREATININE 1.8 mg/dL (0.7-1.3); POTASSIUM 4.1 mmol/l (3.5-5.1)
[2020-01-24 07:34] VITALS: BP 146/77
--- NOTE | 2020-01-24 07:36 | NUR ---
REPORT RECEIVED FROM NEL STARKS. PT RESTING IN BED SEMI FOWLERS; ALERT AND ORIENTED. DENIES PAIN. RESPIRATIONS EVEN AND UNLABORED ON OXYGEN 2L VIA NC. EXPIRATORY WHEEZING TO LEFT LUNG. IV FLUIDS INFUSING AT KVO INTO TL RIJ; DRESSING CDI. PLAN OF CARE REVIEWED. PT ENCOURAGED TO VERBALIZE CONCERNS. STATES UNDERSTANDING. SAFETY MEASURES IN PLACE. CALL LIGHT WITHIN REACH.
--- NOTE | 2020-01-24 08:51 | NUR ---
TALKING TO SISTER ON PHONE. ROXICODONE GIVEN WITH AM MEDS FOR GENERALIZED ACHES.
--- NOTE | 2020-01-24 10:23 | NUR ---
01/23/20 PT note Patient is seen for functional training. He is able to perform bed mobility and transfers with min assist. He stood and marched in place 20 steps limited by dyspnea although HR never exceeded 114. He required mod assist for standing balance Am Pac is 12-14 indicating he would do well with home health as he continues to request no ECF
[2020-01-24 12:00] VITALS: BP 143/79
--- NOTE | 2020-01-24 12:05 | NUR ---
CASE MANAGEMENT AT BEDSIDE TO DISCUSS DISCHARGE PLANS. PT ACCEPTED TO [facility]. FAMILY UPDATED.
--- NOTE | 2020-01-24 14:06 | NUR ---
SPOKE WITH STEPHIE WITH [facility]. ETA OF 1630.
--- NOTE | 2020-01-24 14:45 | NUR ---
TRIPLE LUMEN RIGHT IJ REMOVED; HOB DOWN AND PRESSURE HELD; PT TOLERATED WELL. TELE REMOVED.
[2020-01-24 15:19] VITALS: BP 130/76
--- NOTE | 2020-01-24 15:43 | NUR ---
[facility] ON UNIT FOR TRANSFER.
--- NOTE | 2020-01-24 16:00 | NUR ---
Discharge instructions given. Patient verbalizes understanding of same. Discharged in stable condition via [facility] to [facility] with staff. All belongings sent with pt.
--- NOTE | 2020-01-24 16:08 | NUR ---
REPORT CALLED TO NURSE AT [facility].
== END 2020-01-24 15:49 | DRG 871 ==
LOC: ED 23:05 → ED-I 01-20 01:13 → ED 01-20 01:37 → ICU 01-20 01:38 → MS2 01-23 16:15
PROVIDERS: Emergency Medicine; Internal Medicine; Internal Medicine Nephrology; ADMIT Internal Medicine; ATTEND Internal Medicine
PROC: 5A09357 Assistance with Respiratory Ventilation, Less than 24 Consecutive Hours, Continuous Positive Airway Pressure (ICD-10-PCS; principal; 2020-01-20)
PROC: 05H533Z Insertion of Infusion Device into Right Subclavian Vein, Percutaneous Approach (ICD-10-PCS; 2020-01-20)
PROC: 0BH17EZ Insertion of Endotracheal Airway into Trachea, Via Natural or Artificial Opening (ICD-10-PCS; 2020-01-21)
PROC: 5A1945Z Respiratory Ventilation, 24-96 Consecutive Hours (ICD-10-PCS; 2020-01-21)
DX: A41.9 Sepsis, unspecified organism (principal); J18.9 Pneumonia, unspecified organism; N17.0 Acute kidney failure with tubular necrosis; R65.21 Severe sepsis with septic shock; J96.02 Acute respiratory failure with hypercapnia; J96.01 Acute respiratory failure with hypoxia; Z68.41 Body mass index [BMI] 40.0-44.9, adult; E87.2 Acidosis; E87.4 Mixed disorder of acid-base balance; E87.1 Hypo-osmolality and hyponatremia; J43.9 Emphysema, unspecified; I12.9 Hypertensive chronic kidney disease with stage 1 through stage 4 chronic kidney disease, or unspecified chronic kidney disease; E11.22 Type 2 diabetes mellitus with diabetic chronic kidney disease; N18.3 Chronic kidney disease, stage 3 (moderate); E87.5 Hyperkalemia; R79.1 Abnormal coagulation profile; E11.51 Type 2 diabetes mellitus with diabetic peripheral angiopathy without gangrene; I95.9 Hypotension, unspecified; E78.5 Hyperlipidemia, unspecified; E66.01 Morbid (severe) obesity due to excess calories; T45.515A Adverse effect of anticoagulants, initial encounter; D64.9 Anemia, unspecified; Q85.00 Neurofibromatosis, unspecified; G47.33 Obstructive sleep apnea (adult) (pediatric); G40.909 Epilepsy, unspecified, not intractable, without status epilepticus; E86.0 Dehydration; T38.3X5A Adverse effect of insulin and oral hypoglycemic [antidiabetic] drugs, initial encounter; T50.1X5A Adverse effect of loop [high-ceiling] diuretics, initial encounter; T46.4X5A Adverse effect of angiotensin-converting-enzyme inhibitors, initial encounter; Z20.828 Contact with and (suspected) exposure to other viral communicable diseases; Z87.891 Personal history of nicotine dependence; Z79.84 Long term (current) use of oral hypoglycemic drugs; Z79.01 Long term (current) use of anticoagulants; Z86.711 Personal history of pulmonary embolism; Z86.718 Personal history of other venous thrombosis and embolism
CPT/HCPCS: J1650; J1953; J2597; J3475; S0164